=== PATIENT | male | born 1975 ===

== ENCOUNTER 2016-07-12 13:54 | Emergency (ER) | payer SELFPAY, MEDICAID ==
[2016-07-12 14:03] VITALS: BMI 27.1
[2016-07-12 15:06] VITALS: BP 147/98; PULSE 96; RESP 18; TEMP 98.1; O2SAT 97
--- NOTE | 2016-07-12 15:23 | C.PDOC ---
History Of Present Illness The patient, a 40 y/o male, presents to the ED requesting alcohol detox. Patient notes his last drink was prior to arrival. Otherwise, he denies suicidal /homicidal ideation and has no physical complaints at this time. Time Seen by Provider: 07/12/16 14:59 Chief Complaint (Nursing): Substance Abuse History Per: Patient History/Exam Limitations: intoxication Onset/Duration Of Symptoms: Hrs Current Symptoms Are (Timing): Still Present Suicide/Self Injury Attempted (Context): None Modifying Factor(s): Alcohol Associated Symptoms: denies: Suicidal Thoughts, Suicidal Plan Involuntary Hold By: None Recent travel outside of the [place]: No Additional History Per: Patient Past Medical History Reviewed: Historical Data, Nursing Documentation, Vital Signs Vital Signs: Last Vital Signs Temp 98.1 F 07/12/16 15:03 Pulse 96 H 07/12/16 15:03 Resp 18 07/12/16 15:03 BP 147/98 H 07/12/16 15:03 Pulse Ox 97 07/12/16 16:46 - Medical History PMH: Depression Denies: Diabetes, Hepatitis, HIV, HTN, Seizures, Sexually Transmitted Disease Surgical History: No Surg Hx - [facility] DETOXIFICATION SERVICES FOR SUBSTANCE ABUSE TREATMENT (02/06/16) Family History: States: Unknown Family Hx - Social History Hx Alcohol Use: Yes Hx Substance Use: No - Immunization History Hx Tetanus Toxoid Vaccination: No Hx Influenza Vaccination: No Hx Pneumococcal Vaccination: No Review Of Systems Except As Marked, All Systems Reviewed And Found Negative. Psych: Positive for: Other (+requesting alcohol detox ). Negative for: Suicidal ideation Physical Exam - Physical Exam Appears: No Acute Distress Skin: Normal Color, Warm, Dry Head: Atraumatic, Normacephalic Eye(s): bilateral: Normal Inspection Oral Mucosa: Moist, Other (+alcohol on breath ) Neck: Supple Chest: Symmetrical, No Deformity, No Tenderness Cardiovascular: Rhythm Regular, No Murmur Respiratory: Normal Breath Sounds, No Rales, No Rhonchi, No Wheezing Back: Normal Inspection, No Vertebral Tenderness, No Paraspinal Tenderness Extremity: Normal ROM, Capillary Refill (less than 2 seconds ) Neurological/Psych: Oriented x3, Normal Speech, Normal Cognition Gait: Steady ED Course And Treatment O2 Sat by Pulse Oximetry: 97 (on RA) Pulse Ox Interpretation: Normal Progress Note: Patient informed that there are no detox beds available at this time. Patient is stable for discharge and is given propr follow-up information. Disposition Counseled Patient/Family Regarding: Diagnosis - Disposition Referrals: Alcoholics Anonymous [Outside] [facility] [Outside] [facility] [Outside] Disposition: HOME/ ROUTINE Disposition Time: 15:30 Condition: STABLE Additional Instructions: Follow up with outpatient services Return to ED if any increase symptoms Instructions: Abuse of Alcohol (ED) - POA Present On Arrival: None - Clinical Impression Clinical Impression: Alcohol use disorder, severe, dependence - PA / BRAND ATTENDANT / Resident Statement MD/DO has reviewed & agrees with the documentation as recorded. - Scribe Statement The provider has reviewed the documentation as recorded by the Scribe (Melanie Coleman) All medical record entries made by the Scribe were at my direction and personally dictated by me. I have reviewed the chart and agree that the record accurately reflects my personal performance of the history, physical exam, medical decision making, and the department course for this patient. I have also personally directed, reviewed, and agree with the discharge instructions and disposition.
== END 2016-07-12 15:41 | disposition home or self-care (01) ==
LOC: C.ER 13:54
DX: F10.20 Alcohol dependence, uncomplicated (principal); Y90.9 Presence of alcohol in blood, level not specified

== ENCOUNTER 2016-09-29 19:06 | Inpatient (IN) | payer MEDICAID, SELFPAY ==
[2016-09-29 19:06] VITALS: BMI 27.1
[2016-09-29 20:40] LABS: RBC URINE < 1 /hpf (0-3); URINE BILIRUBIN NEGATIVE (NEGATIVE); URINE BLOOD 1+ (NEGATIVE); URINE COLOR Straw (YELLOW); URINE GLUCOSE (UA) NORMAL (Normal); URINE KETONE NEGATIVE (NEGATIVE); URINE LEUKOCYTE ESTERASE NEG Leu/uL (Negative); URINE PROTEIN NEGATIVE (NEGATIVE); URINE UROBILINOGEN NORMAL mg/dL (0.2-1.0); WBC URINE < 1 /hpf (0-5)
[2016-09-29 20:47] LABS: CHLORIDE 95 mmol/L (98-107)
[2016-09-29 20:48] LABS: POTASSIUM 3.6 mmol/L (3.6-5.2); SODIUM 135 mmol/L (132-148)
[2016-09-29 20:50] LABS: ALB/GLOB RATIO 1.1 (1.0-2.1); ALKALINE PHOSPHATASE 114 U/L (38-126); AST/SGOT 113 U/L (17-59); BILIRUBIN,TOTAL 1.2 mg/dL (0.2-1.3); BLOOD UREA NITROGEN 5 mg/dL (9-20); CARBON DIOXIDE 19 mmol/L (22-30); GFR AFRICAN-AMERICAN > 60; TOTAL PROTEIN 8.4 g/dL (6.3-8.3)
[2016-09-29 20:51] LABS: ALCOHOL SERUM 148 mg/dl (0-10); ALT/SGPT 85 U/L (21-72); CALCIUM 9.4 mg/dl (8.6-10.4); GLUCOSE,RANDOM 100 mg/dL (75-110)
--- NOTE | 2016-09-29 21:07 | C.PDOC ---
History Of Present Illness 41 year old male who presents to the ER intoxicated and seeking detox from ETOH ; last drink was [employer]. Denies physical complaints at this time. Time Seen by Provider: 09/29/16 20:45 Chief Complaint (Nursing): Substance Abuse History Per: Patient History/Exam Limitations: no limitations Onset/Duration Of Symptoms: Hrs Current Symptoms Are (Timing): Still Present Suicide/Self Injury Attempted (Context): None Modifying Factor(s): Alcohol Associated Symptoms: denies: Depression, Suicidal Thoughts, Suicidal Plan Involuntary Hold By: None Recent travel outside of the [place]: No Past Medical History Reviewed: Historical Data, Nursing Documentation, Vital Signs Vital Signs: Last Vital Signs Temp 98.2 F 09/29/16 19:36 Pulse 100 H 09/29/16 19:36 Resp 16 09/29/16 19:36 BP 147/95 H 09/29/16 19:36 Pulse Ox 97 09/29/16 21:11 - Medical History PMH: Depression Surgical History: No Surg Hx - [facility] Procedures DETOXIFICATION SERVICES FOR SUBSTANCE ABUSE TREATMENT (02/06/16) Family History: States: Unknown Family Hx - Social History Hx Alcohol Use: Yes Hx Substance Use: No - Immunization History Hx Tetanus Toxoid Vaccination: No Hx Influenza Vaccination: No Hx Pneumococcal Vaccination: No Review Of Systems Constitutional: Negative for: Fever, Chills Gastrointestinal: Negative for: Nausea, Vomiting, Diarrhea Physical Exam - Physical Exam Appears: Non-toxic, No Acute Distress, Other (ETOH on breath) Skin: Normal Color, Warm, Dry Head: Atraumatic, Normacephalic Oral Mucosa: Moist Chest: Symmetrical, No Tenderness Cardiovascular: Rhythm Regular, No Murmur Respiratory: Normal Breath Sounds, No Rales, No Rhonchi, No Wheezing Gastrointestinal/Abdominal: Soft, No Tenderness Neurological/Psych: Oriented x3, Normal Speech, Normal Cognition ED Course And Treatment - Laboratory Results Result Diagrams: 09/29/16 20:31 09/29/16 20:31 Lab Interpretation: Abnormal (etoh 148H) O2 Sat by Pulse Oximetry: 97 (Room air) Pulse Ox Interpretation: Normal Progress Note: Blood work ordered. Discussed case with nursing home social worker; no detox bed available, patient given information on other local detox sites and instuctions on how to become prescreened. Reevaluation Time: 22:29 Reassessment Condition: Improved - Physician Consult Information Outcome Of Conversation: 2230: d/w Detox- ok to Detox Medical Decision Making Medical Decision Making: alcohol abuse Disposition Doctor Will See Patient In The: Hospital Counseled Patient/Family Regarding: Studies Performed, Diagnosis - Disposition Disposition: HOSPITALIZED Disposition Time: 22:30 Condition: GOOD Forms: [facility] (Upper Sorbian) - Clinical Impression Clinical Impression: Alcohol use disorder, severe, dependence - Scribe Statement The provider has reviewed the documentation as recorded by the Alliibnessa Galdamez All medical record entries made by the Rashi were at my direction and personally dictated by me. I have reviewed the chart and agree that the record accurately reflects my personal performance of the history, physical exam, medical decision making, and the department course for this patient. I have also personally directed, reviewed, and agree with the discharge instructions and disposition.
[2016-09-29 21:19] LABS: BASO # 0.1 K/uL (0.0-0.2); BASO % 1.2 % (0.0-2.0); EOS % 0.3 % (0.0-4.0); HEMATOCRIT 48.2 % (35.0-51.0); LYMPH # 1.5 K/uL (1.0-4.3); MEAN CELL VOLUME 99.8 fL (80.0-94.0); MEAN CORPUSCULAR HEMOGLOBIN 35.1 pg (27.0-31.0); MEAN CORPUSCULAR HGB CONC 35.1 g/dL (33.0-37.0); MEAN PLATELET VOLUME 7.5 fL (7.2-11.7); MONO # 0.4 K/uL (0.0-0.8); MONO % 9.5 % (0.0-10.0); NRBC % 0.2 % (0.0-2.0); RED CELL DISTRIBUTION WIDTH 12.7 % (11.5-14.5); WHITE BLOOD COUNT 4.4 K/uL (4.8-10.8)
--- NOTE | 2016-09-30 08:49 | PCM.BM ---
<RaulitoEmelyn foster George - Last Filed: 09/30/16 08:48> Treatment Plan Problems - Problems identified on initial assessmt Alcohol Dependence Date Initiated: 09/30/16 Time Initiated: 08:49 Assessment reference: NA Status: Active Treatment assets and liabiliti Patient Assests: ADL independent Patient Liabilities: substance abuse - Milieu Protocol Maintain good personal hygiene: daily Encourage regular showers, daily Remind patient to perform daily oral care, daily Assist patient to perform ADL's Maintain personal safety: every shift Educate patient to report safety concerns to staff, every shift Monitor environment for contraband/sharps Medication safety: Monitor for expected outcome, potential side effects: every shift, Assess barriers to learning: every shift, Assess readiness for medication education: every shift <Sonam Kelley - Last Filed: 10/02/16 10:41> Family Contact Family involvement: Famliy/SO not involved Family contact: Patient agrees to contact - Goals for Treatment Patient goals for treatment: To transition to o/p tx. for people who are uninsured. Discharge/Continuing Care - Education Needs Education Needs: Patient Medication, Patient Diagnosis/Disease Process, Patient Coping Skills, Patient Anger Management skills, Patient Placement options, Patient Community resources - Discharge Discharge Criteria: Tolerates medication w/o severe side effects, Normal sleep pattern, No longer exhibiting s/s of withdrawal, Reduction of target symptoms Discharge to:: Home - Treatment Team Participation Patient/Family/SO Statement: 10/02/16 10:43 " I gotta get a job. That will keep me busy". Also I gotta attend AA meetings". Was Patient/Family/SO present at Treatment Team Meeting: Yes <Carmen Israel - Last Filed: 10/02/16 12:55> - Diagnosis (1) Alcohol use disorder, severe, dependence Status: Acute Interventions: 10/02/16 12:55 * Assess 7x/week regarding severity of withdrawal * Educate regarding risks, benefits, side effects and alternatives of medications * Use Motivational Interviewing for abstinence * Use CBT for relapse prevention * Medication management for withdrawal symptoms * Encourage medication assisted treatment *
[2016-09-30] MEDS: Multiple Vitamins Tab PO SCH (12:02)
--- NOTE | 2016-09-30 23:56 | PCM.PSYCH ---
Initial Psychiatric Evaluation - Initial Psychiatric Evaluation Type of Admission: Voluntary Legal Status: Capacity Chief Complaint (in patient's own words): I'm feeling anxious History of Present Illness and Precipitating Events: He is 41 year old male who is admitted for alcohol detox. He is single, unemployed. His left him couple of weeks ago due to his alcohol drinking habit. He stated that he was drinking 6-8 cans of beers daily for 2 years, withdrawal symptoms were positive if he tried to quit drinking. CAGE questionaire was positive. He reported that he lost his job and his family due to drinking habit. He is hopeful that he can stay sober after detox. He reported that he is depressed, but no SI,HI, intent or plan. He denied SZ, DT or lever issues. no AVH. Current Medications: Active Medications Generic Name Dose Route Start Last Admin Trade Name Freq PRN Reason Stop Dose Admin Clonidine HCl 0.1 mg 09/30/16 10:43 09/30/16 12:03 Catapres PO 0.1 mg Q8H PRN Administration INCREASE SBP, ETOH WITHDRAWAL Folic Acid 1 mg 09/30/16 10:45 09/30/16 12:03 Folic Acid PO 1 mg DAILY SUKHI Administration Ibuprofen 600 mg 09/30/16 10:46 09/30/16 20:32 Motrin Tab PO 600 mg TID PRN Administration Pain, moderate (4-7) Lorazepam 2 mg 09/30/16 00:30 09/30/16 20:32 Ativan PO 10/04/16 00:29 2 mg Q4H SUKHI Administration Taper Lorazepam 1 mg 09/30/16 00:24 Ativan PO Q6 PRN for withdrawals see instructio Multivitamins 1 tab 09/30/16 10:45 09/30/16 12:02 Hexavitamin PO 1 tab DAILY SUKHI Administration Thiamine HCl 100 mg 09/30/16 10:45 09/30/16 12:03 Vitamin B1 Tab PO 100 mg DAILY SUKHI Administration Past Psychiatric History - Past Psychiatric History Prior Professional Help: multiple detox Prior Psychiatric Treatment: none reported At what hospital: detox in [facility] in 2016, In [place] in 2016 Duration: 5 days Nature of Treatment: detox History of Abuse: no sexual or physical abuse History of ETOH/Drug Use: please see HPI History of Family Illness: denied Pertinent Medical Hx (Current Medical&Sleep Prob, Allergies): Allergies Allergy/AdvReac Type Severity Reaction Status Date / Time No Known Allergies Allergy Verified 09/29/16 19:38 No Known Home Med 07/12/16 Review of Systems - Review of Systems All systems: reviewed and no additional remarkable complaints except (please see HPI) Mental Status Examination - Personal Presentation Personal Presentation: Looks stated age - Affect Affect: Constricted - Motor Activity Motor Activity: Psychomotor Agitation - Reliability in Providing Information Reliability in Providing Information: Fair - Speech Speech: Coherent - Mood Mood: Depressed, Anxious - Formal Thought Process Formal Thought Process: No Impairment - Hallucinations/Delusions Additional comments: No AVH - Obsessions/Compulsions Obsessions: No Compulsions: No - Cognitive Functions Orientation: Person, Place, Situation, Time Sensorium: Alert Attention/Concentration: Attentive Abstract Thinking: Nemo Estimate of Intelligence: Average Judgement: Intact, as evidence by: Good judgement, Intact, as evidence by: Insight regarding need for hospitalization Memory: Recent intact, as evidence by: Ability to recall events of the day - Risk Additional comments: None reported - Strength & Assets Inventory Strength & Assets Inventory: Intelligence, Cooperative DSM 5 DX - DSM 5 DSM 5 Diagnosis: Alcohol use disorder severe, Depressive disorder unspecified type - Recommended/Plan of Treatment Treatment Recommendations and Plan of Treatment: Ativan detox for alcohol As needed meds [place] and CBT Attend groups and activities Support and psychoeducation Consider MAT Refer to IOP or rehab 34 min Projected ELOS: 5 days Prognosis: good with treatment Discharge Plan and Discharge Criteria: as per SW - Smoking Cessation Smoking Cessation Initiated: Yes
[2016-10-01] MEDS: Multiple Vitamins Tab PO SCH (10:14)
--- NOTE | 2016-10-01 20:05 | PCM.PYCHPN ---
Psychiatric Progress Note - Psychiatric Progress Note Patient seen today, length of contact: 17 minutes Patient Chief Complaint: I'm feeling better Problems Identified/Issues Discussed: The pt is seen, chart reviewed, case discussed with staff. The pt is compliant with medications and reports no side-effects. Symptoms are improving but needs more time to stabilize.~ After care discussed, support and psychoeducation given. Medical Problems: None reported Diagnostic Results: No new result DSM 5 Symptoms Update: Alcohol use disorder, severe, Depressive disorder unspecified type Medication Change: Yes (Ativan taper daily) Medical Record Reviewed: Yes Mental Status Examination - Cognitive Function Orientation: Person, Place, Situation, Time Attention: WNL Concentration: WNL Association: WNL Fund of Knowledge: WNL - Mood Mood: Depressed, Anxious - Affect Affect: Constricted - Speech Speech: Appropriate - Formal Thought Process Formal Thought Process: No Impairment - Suicidal Ideation Suicidal Ideation: No - Homicidal Ideation Homicidal Ideation: No Goal/Treatment Plan - Goal/Treatment Plan Need for Continued Stay: Discharge may exacerbated symptoms Progress Toward Problem(s) and Goals/Treatment Plan: Ativan detox for alcohol As needed meds [place] and CBT Attend groups and activities Support and psychoeducation Consider MAT Refer to IOP or rehab 17 min Estimated Date of D/C: 10/05/16 - Smoking Cessation Smoking Cessation Initiated: Yes
[2016-10-02] MEDS: Multiple Vitamins Tab PO SCH (09:15)
--- NOTE | 2016-10-02 14:27 | PCM.PYCHPN ---
Psychiatric Progress Note - Psychiatric Progress Note Patient seen today, length of contact: 17 minutes Patient Chief Complaint: "I want to become sober, join AA, and get a job" Problems Identified/Issues Discussed: The pt is seen, chart reviewed, case discussed with staff. Support given, CBT and [place] used briefly Patient is not sleeping ok, feels dizzy, and feels tired. Patients Liver is impaired, need to do Liver function testing again. After care discussed. Patient has no insurance, needs to get medicaid. Medication Change: Yes (Ativan taper daily) Medical Record Reviewed: Yes Mental Status Examination - Cognitive Function Orientation: Person, Place, Situation, Time Memory: Intact Attention: WNL Concentration: WNL Association: WNL Fund of Knowledge: WNL - Mood Mood: Neutral - Affect Affect: Broad - Speech Speech: Appropriate - Formal Thought Process Formal Thought Process: No Impairment - Suicidal Ideation Suicidal Ideation: No - Homicidal Ideation Homicidal Ideation: No Goal/Treatment Plan - Goal/Treatment Plan Need for Continued Stay: Discharge may exacerbated symptoms, Severe functional impairment Progress Toward Problem(s) and Goals/Treatment Plan: Continue medications Support and psychoeducation daily Attend groups and activities daily After care planning by BAY Naltrexone recommended Estimated Date of D/C: 10/05/16
[2016-10-02 15:51] VITALS: RESP 18
--- NOTE | 2016-10-03 08:50 | PCM.PYCHDC ---
Mental Status Examination - Mental Status Examination Orientation: Person, Place, Situation, Time Memory: Intact Mood: Neutral Affect: Broad Speech: Appropriate Attention: WNL Concentration: WNL Language: Word Retrieval Association: WNL Fund of Knowledge: WNL Formal Thought Process: No Impairment Suicidal Ideation: No Current Homicidal Ideation?: No Discharge Summary - Discharge Note Reason for Hospitalization: 41 year old male who presented to the ER intoxicated and seeking detox from ETOH ; last drink was prior to admission. Psychiatric History (includes Medical, Family, Personal Hx): detox Consultations:: List each consultation separately and include: 1. Reason for request. 2. Findings. 3. Follow-up Summary of Hospital Course include:: 1. Description of specific treatment plan utilized for patients during their course of treatmen. 2. Summarize the time- course for resolution of acute symptoms and/or regressed behaviors. 3. Describe issues identified and worked on during hospitalization. 4. Describe medication utilized. 5. Describe medical problems identified and treated. 6. Reassessment of suicide risk Summary of Hospital Course: Treatment: Ativan detox for alcohol As needed meds [place] and CBT Attend groups and activities Support and psychoeducation Consider MAT Refer to IOP or rehab Course of treatment: 3 nights - Final Diagnosis (DSM 5) Condition upon Discharge: GOOD DSM 5: Alcohol use disorder severe Depressive disorder unspecified type Disposition: HOME/ ROUTINE Follow-up Treatment Plan: Patient will follow up only with alcoholics anonymous until he attains medicare coverage at which time he will be eligible for further preventative treatment. He conveyed to us he was not interested in inpatient rehab at this time. Recommend follow up with our [facility] ([phone]) so he can get regular follow up regarding his elevated LFTs (likely 2/2 to etoh abuse ) and his hypertension. Use relapse prevention skills. Return to ER or call 911 if suicidal, homicidal or symptoms relapse. Stay away from stress, alcohol and drugs. Prescriptions/Medication Reconciliation: Gabapentin [Neurontin] 300 mg PO BID #60 cap traZODone [Desyrel] 100 mg PO HS #30 tab - Antipsychotic Medications Pt discharged on 2 or more routine antipsychotic medications: No
[2016-10-03 09:00] LABS: CHLORIDE 98 mmol/L (98-107)
[2016-10-03 09:01] LABS: POTASSIUM 3.7 mmol/L (3.6-5.2); SODIUM 138 mmol/L (132-148)
[2016-10-03 09:03] LABS: ALB/GLOB RATIO 1.1 (1.0-2.1); ALKALINE PHOSPHATASE 88 U/L (38-126); ALT/SGPT 105 U/L (21-72); AST/SGOT 126 U/L (17-59); BLOOD UREA NITROGEN 13 mg/dL (9-20); CARBON DIOXIDE 26 mmol/L (22-30); GFR AFRICAN-AMERICAN > 60; TOTAL PROTEIN 7.5 g/dL (6.3-8.3)
[2016-10-03 09:04] LABS: CALCIUM 8.8 mg/dl (8.6-10.4); GLUCOSE,RANDOM 105 mg/dL (75-110)
[2016-10-03] MEDS: Multiple Vitamins Tab PO SCH (09:52)
[2016-10-03 09:59] VITALS: TEMP 98.2; O2SAT 100
[2016-10-03 11:28] VITALS: BP 145/90; PULSE 90
== END 2016-10-03 12:30 | disposition home or self-care (01) | DRG 751 ==
LOC: C.ER 19:06 → C.7D 22:30
PROVIDERS: ADMIT Psychiatry & Neurology Psychiatry; ATTEND Psychiatry & Neurology Psychiatry
PROC: HZ2ZZZZ Detoxification Services for Substance Abuse Treatment (ICD-10-PCS; principal; 2016-09-29)
PROC: HZ46ZZZ Group Counseling for Substance Abuse Treatment, Psychoeducation (ICD-10-PCS; 2016-09-29)
PROC: HZ59ZZZ Individual Psychotherapy for Substance Abuse Treatment, Supportive (ICD-10-PCS; 2016-09-29)
DX: F10.230 Alcohol dependence with withdrawal, uncomplicated (principal); F32.9 Major depressive disorder, single episode, unspecified; F10.220 Alcohol dependence with intoxication, uncomplicated

== ENCOUNTER 2016-10-14 16:06 | Emergency (ER) | payer SELFPAY ==
[2016-10-14 16:07] VITALS: BMI 27.1
[2016-10-14 16:18] VITALS: TEMP 98.3
[2016-10-14] MEDS ORDERED: Sodium Chloride 0.9% 1,000 ML IV ONE (16:30)
[2016-10-14 16:41] LABS: RBC URINE 22 /hpf (0-3); URINE BILIRUBIN NEGATIVE (NEGATIVE); URINE BLOOD 1+ (NEGATIVE); URINE COLOR Amber (YELLOW); URINE GLUCOSE (UA) 1+ mg/dL (Normal); URINE KETONE TRACE mg/dL (NEGATIVE); URINE LEUKOCYTE ESTERASE NEG Leu/uL (Negative); URINE PROTEIN 1+ mg/dL (NEGATIVE); URINE UROBILINOGEN NORMAL mg/dL (0.2-1.0); WBC URINE < 1 /hpf (0-5)
[2016-10-14] MEDS ORDERED: Sodium Chloride 0.9% 1,000 ML ONE (16:41)
[2016-10-14 16:42] LABS: BASO # 0.1 K/uL (0.0-0.2); BASO % 0.6 % (0.0-2.0); EOS # 0.1 K/uL (0.0-0.7); EOS % 0.7 % (0.0-4.0); HEMATOCRIT 44.1 % (35.0-51.0); LYMPH % 21.8 % (20.0-40.0); MEAN CELL VOLUME 101.6 fL (80.0-94.0); MEAN CORPUSCULAR HEMOGLOBIN 35.7 pg (27.0-31.0); MEAN CORPUSCULAR HGB CONC 35.1 g/dL (33.0-37.0); MEAN PLATELET VOLUME 7.7 fL (7.2-11.7); MONO # 0.9 K/uL (0.0-0.8); RED CELL DISTRIBUTION WIDTH 12.2 % (11.5-14.5); WHITE BLOOD COUNT 9.3 K/uL (4.8-10.8)
[2016-10-14 16:50] LABS: CHLORIDE 99 mmol/L (98-107)
--- NOTE | 2016-10-14 16:50 | C.PDOC ---
History Of Present Illness Rodrick Castorena, a 41 year old male, presents to the ED complaining of lower abdominal pain x1 day. The patient states that the pain radiates to his back. Denies fever, chills. Patient states he does note some burning with urination. No PMD Time Seen by Provider: 10/14/16 16:23 Chief Complaint (Nursing): Abdominal Pain History Per: Patient History/Exam Limitations: no limitations Onset/Duration Of Symptoms: Days (x1 day) Current Symptoms Are (Timing): Still Present Radiation Of Pain To:: Back Associated Symptoms: Urinary Symptoms (dysuria) Past Medical History Reviewed: Historical Data, Nursing Documentation, Vital Signs Vital Signs: Last Vital Signs Temp 98.3 F 10/14/16 16:13 Pulse 87 10/14/16 16:13 Resp 20 10/14/16 16:13 BP 124/84 10/14/16 16:13 Pulse Ox 97 10/14/16 17:54 - Medical History PMH: Depression Denies: Diabetes, Hepatitis, HIV, HTN, Seizures, Sexually Transmitted Disease Surgical History: No Surg Hx - [facility] Procedures DETOXIFICATION SERVICES FOR SUBSTANCE ABUSE TREATMENT (09/29/16) GROUP AUTOMATIC HEMMER FOR SUBSTANCE ABUSE TREATMENT, PSYCHOEDUCATION (09/29/16) INDIV PSYCHOTHERAPY FOR SUBSTANCE ABUSE TREATMENT, SUPPORT (09/29/16) Family History: States: Unknown Family Hx - Social History Hx Alcohol Use: Yes Hx Substance Use: No - Immunization History Hx Tetanus Toxoid Vaccination: No Hx Influenza Vaccination: No Hx Pneumococcal Vaccination: No Review Of Systems Constitutional: Negative for: Fever, Chills Gastrointestinal: Positive for: Abdominal Pain (lower abdominal pain radiating to back) Genitourinary: Positive for: Dysuria Physical Exam - Physical Exam Appears: Well, Non-toxic, No Acute Distress Skin: Normal Color, Warm, Dry Head: Atraumatic, Normacephalic Eye(s): bilateral: Normal Inspection, PERRL, EOMI Nose: Normal Oral Mucosa: Moist Tongue: Normal Appearing Lips: Normal Appearing Teeth: Normal Dentition Gingiva: Normal Appearing Throat: Normal Neck: Normal, Normal ROM, Supple Chest: Symmetrical, No Deformity, No Tenderness Cardiovascular: Rhythm Regular, No Murmur Respiratory: Normal Breath Sounds, No Rales, No Rhonchi, No Wheezing Gastrointestinal/Abdominal: Bowel Sounds, Soft, Tenderness (suprapubic tenderness) Back: Normal Inspection, No CVA Tenderness Extremity: Normal ROM, No Tenderness, No Deformity, No Swelling Neurological/Psych: Oriented x3, Normal Speech, Normal Cognition ED Course And Treatment - Laboratory Results Result Diagrams: 10/14/16 16:40 10/14/16 16:40 Lab Interpretation: Normal O2 Sat by Pulse Oximetry: 97 (RA) Pulse Ox Interpretation: Normal - CT Scan/US No standard instances Other Rad Studies (CT/US): Read By Radiologist, Radiology Report Reviewed CT/US Interpretation: FINDINGS: LOWER THORAX: Unremarkable. LIVER: Unremarkable. No gross lesion or ductal dilatation. GALLBLADDER AND BILE DUCTS : The gallbladder is contracted. No evidence of cholecystitis. PANCREAS: Unremarkable. No gross lesion or ductal dilatation. SPLEEN: Unremarkable. ADRENALS: Unremarkable. No mass. KIDNEYS AND URETERS: Unremarkable. No hydronephrosis. No solid mass. VASCULATURE: Unremarkable. No aortic aneurysm. BOWEL: There are scattered colonic diverticulosis. There are inflammatory changes surrounding the proximal sigmoid colon in the left lower abdomen consistent with diverticulitis. No evidence of bowel obstruction. APPENDIX: Unremarkable. Normal appendix. PERITONEUM: Unremarkable. No free fluid. No free air. LYMPH NODES: Unremarkable. No enlarged lymph nodes. BLADDER: Urinary bladder is not distended. REPRODUCTIVE: Enlarged prostate and seminal vesicles noted. BONES: No acute fracture. OTHER FINDINGS: None. IMPRESSION : Proximal sigmoid colon diverticulitis. No evidence of abscess formation in this noncontrast study. No evidence of free air. Otherwise no evidence of acute pathology in the abdomen and pelvis. Enlarged prostate and seminal vesicles. Progress Note: Treated with IVF NSS, toradol IV. On re-evaluation abdomen soft mild lower abdominal tenderness Reassessment Condition: Unchanged Medical Decision Making Medical Decision Makin Initial Impression: 41 year old male presenting with lower abdominal pain Initial Plan: * CT ABD&PELV w/o PO or IV Contrast * CMP * CBC * Chlamydia/GC RNA * TMA * NS 1000mls IV 1000mls/hr * Toradol * Urine Culture * Urinalysis * Reevaluation Disposition Counseled Patient/Family Regarding: Studies Performed, Diagnosis, Need For Followup, Rx Given - Disposition Referrals: [facility] [Outside] [place] [employer] [facility] [Outside] Disposition: HOME/ ROUTINE Disposition Time: 18:00 Condition: STABLE Additional Instructions: Follow up at clinic for further evaluation Return to ED if any increase abdominal pain, fever or chills Prescriptions: Amoxicillin/Clavulanate [Augmentin 875 MG-125 MG] 1 tab PO BID #14 tab Naproxen [Naprosyn] 1 tab PO BID PRN #25 tab PRN Reason: Pain Instructions: Diverticulitis Diet (DC), Diverticulitis (ED) Forms: [facility] (Croatian) - POA Present On Arrival: None - Clinical Impression Clinical Impression: Abdominal pain, Diverticulitis - Scribe Statement The provider has reviewed the documentation as recorded by the Rashi Huerta All medical record entries made by the Rashi were at my direction and personally dictated by me. I have reviewed the chart and agree that the record accurately reflects my personal performance of the history, physical exam, medical decision making, and the department course for this patient. I have also personally directed, reviewed, and agree with the discharge instructions and disposition.
[2016-10-14 16:51] LABS: POTASSIUM 3.7 mmol/L (3.6-5.2); SODIUM 140 mmol/L (132-148)
[2016-10-14 16:53] LABS: ALKALINE PHOSPHATASE 79 U/L (38-126); AST/SGOT 29 U/L (17-59); BILIRUBIN,TOTAL 1.1 mg/dL (0.2-1.3); CARBON DIOXIDE 26 mmol/L (22-30); GFR AFRICAN-AMERICAN > 60; TOTAL PROTEIN 8.2 g/dL (6.3-8.3)
[2016-10-14 16:54] LABS: ALB/GLOB RATIO 1.1 (1.0-2.1); ALT/SGPT 42 U/L (21-72); BLOOD UREA NITROGEN 13 mg/dL (9-20); CALCIUM 9.4 mg/dl (8.6-10.4); GLUCOSE,RANDOM 89 mg/dL (75-110)
--- NOTE | 2016-10-14 17:42 | CT ---
PROCEDURE: CT Abdomen and Pelvis without intravenous contrast HISTORY: Pain COMPARISON: None. TECHNIQUE: Axial and reformatted coronal and sagittal CT images of the abdomen and pelvis were obtained without IV or oral contrast administration. Contrast Dose: 0 Radiation dose: Total exam DLP = 733.09 mGy-cm. This CT exam was performed using one or more of the following dose reduction techniques: Automated exposure control, adjustment of the mA and/or kV according to patient size, and/or use of iterative reconstruction technique. FINDINGS: LOWER THORAX: Unremarkable. LIVER: Unremarkable. No gross lesion or ductal dilatation. GALLBLADDER AND BILE DUCTS: The gallbladder is contracted. No evidence of cholecystitis. PANCREAS: Unremarkable. No gross lesion or ductal dilatation. SPLEEN: Unremarkable. ADRENALS: Unremarkable. No mass. KIDNEYS AND URETERS: Unremarkable. No hydronephrosis. No solid mass. VASCULATURE: Unremarkable. No aortic aneurysm. BOWEL: There are scattered colonic diverticulosis. There are inflammatory changes surrounding the proximal sigmoid colon in the left lower abdomen consistent with diverticulitis. No evidence of bowel obstruction. APPENDIX: Unremarkable. Normal appendix. PERITONEUM: Unremarkable. No free fluid. No free air. LYMPH NODES: Unremarkable. No enlarged lymph nodes. BLADDER: Urinary bladder is not distended. REPRODUCTIVE: Enlarged prostate and seminal vesicles noted. BONES: No acute fracture. OTHER FINDINGS: None. IMPRESSION: Proximal sigmoid colon diverticulitis. No evidence of abscess formation in this noncontrast study. No evidence of free air. Otherwise no evidence of acute pathology in the abdomen and pelvis. Enlarged prostate and seminal vesicles.
[2016-10-14] MEDS ORDERED: Amoxicillin-Clav 875-125 mg Tab PO STA (17:49)
[2016-10-14 18:03] VITALS: BP 121/80; PULSE 74; RESP 18; O2SAT 98
[2016-10-14] MEDS ORDERED: Amoxicillin-Clav 875-125 mg Tab PO ONE (18:03)
== END 2016-10-14 18:07 | disposition home or self-care (01) ==
LOC: C.ER 16:06
DX: K57.32 Diverticulitis of large intestine without perforation or abscess without bleeding (principal); R10.30 Lower abdominal pain, unspecified
CPT/HCPCS: 74176; 80053; 81001; 85025; 87086; 87491; 87591; 96361; 96374; 99284; J1885; J7040

== ENCOUNTER 2016-12-18 16:12 | Inpatient (IN) | payer MEDICAID, SELFPAY ==
[2016-12-18 16:13] VITALS: BMI 27.1
[2016-12-18] MEDS ORDERED: Sodium Chloride 0.9% 1,000 ML IV ONE (17:03)
[2016-12-18 17:15] LABS: BASO # 0.1 K/uL (0.0-0.2); BASO % 0.7 % (0.0-2.0); HEMATOCRIT 48.3 % (35.0-51.0); LYMPH # 0.8 K/uL (1.0-4.3); LYMPH % 10.9 % (20.0-40.0); MEAN CELL VOLUME 97.4 fL (80.0-94.0); MEAN CORPUSCULAR HEMOGLOBIN 33.8 pg (27.0-31.0); MEAN CORPUSCULAR HGB CONC 34.7 g/dL (33.0-37.0); MONO # 0.5 K/uL (0.0-0.8); RED CELL DISTRIBUTION WIDTH 13.3 % (11.5-14.5); WHITE BLOOD COUNT 7.7 K/uL (4.8-10.8)
--- NOTE | 2016-12-18 17:15 | C.PDOC ---
History Of Present Illness 41 yo male w/PMHx of alcohol abuse come in request detox. Pt sts, drinking every day, last drink " few beers had few hours [employer]". Pt c/o body shaking, " feeling anxious", headache, mild epigastric pain and nausea, (+) loss of appetite for past few days. Otherwise, pt denies suicidal or homocidal ideation , denies recent illness, headache, dizziness, recent known trauma or injury, drooling, dysphagia, dyspnea, neck pain, CP, SOB, palpitation, hematemesis, melena, UTI sx. At the time of evaluation, appears slightly anxious, tremolos. Time Seen by Provider: 12/18/16 16:39 Chief Complaint (Nursing): Substance Abuse History Per: Patient Past Medical History Reviewed: Historical Data, Nursing Documentation, Vital Signs Vital Signs: Last Vital Signs Temp 98.6 F 12/18/16 18:43 Pulse 100 H 12/18/16 18:43 Resp 19 12/18/16 18:43 BP 158/95 H 12/18/16 18:43 Pulse Ox 100 12/18/16 18:47 - Medical History PMH: Depression, HTN Denies: Diabetes, Hepatitis, HIV, Seizures, Sexually Transmitted Disease - [facility] DETOXIFICATION SERVICES FOR SUBSTANCE ABUSE TREATMENT (09/29/16) GROUP GUARD MANAGER FOR SUBSTANCE ABUSE TREATMENT, PSYCHOEDUCATION (09/29/16) INDIV PSYCHOTHERAPY FOR SUBSTANCE ABUSE TREATMENT, SUPPORT (09/29/16) Family History: States: Unknown Family Hx - Social History Hx Tobacco Use: Yes Hx Alcohol Use: Yes Hx Substance Use: No - Immunization History Hx Tetanus Toxoid Vaccination: No Hx Influenza Vaccination: No Hx Pneumococcal Vaccination: No Review Of Systems Except As Marked, All Systems Reviewed And Found Negative. Constitutional: Negative for: Fever, Chills Eyes: Negative for: Vision Change ENT: Negative for: Ear Discharge, Nose Discharge, Nose Congestion, Throat Pain Cardiovascular: Negative for: Chest Pain, Palpitations, Orthopnea, Light Headedness Respiratory: Negative for: Cough, Shortness of Breath, Wheezing Gastrointestinal: Positive for: Nausea, Abdominal Pain. Negative for: Vomiting , Diarrhea, Constipation, Melena, Hematochezia, Hematemesis Genitourinary: Negative for: Dysuria, Frequency, Incontinence Neurological: Negative for: Weakness, Numbness, Seizures, Altered Mental Status , Headache, Dizziness Physical Exam - Physical Exam Appears: Well, Other (tremolous, anxious) Skin: Normal Color, Warm, Dry, No Rash Head: Atraumatic, Normacephalic Eye(s): bilateral: PERRL Nose: No Flaring, No Discharge, No Deformity, No Tenderness Oral Mucosa: Moist Tongue: Normal Appearing Lips: Normal Appearing Throat: No Erythema, No Exudate, No Drooling Neck: Trachea Midline, Supple Cardiovascular: Rhythm Regular Respiratory: No Decreased Breath Sounds, No Accessory Muscle Use, No Stridor, No Wheezing Gastrointestinal/Abdominal: Soft, Tenderness (mild epigastric), No Distention, No Guarding, No Rebound Back: No CVA Tenderness Extremity: Normal ROM, No Tenderness, No Deformity, No Swelling Neurological/Psych: Oriented x3, Normal Speech, Normal Motor, Normal Sensation, Normal Reflexes ED Course And Treatment - Laboratory Results Result Diagrams: 12/18/16 17:12 12/18/16 17:12 Lab Interpretation: Abnormal ECG: Interpreted By Me, Viewed By Me ECG Rhythm: Sinus Tachycardia Interpretation Of ECG: Sinus tachy@107/min, no acute T wave or ST-T changes O2 Sat by Pulse Oximetry: 100 Pulse Ox Interpretation: Normal Progress Note: Pt was OBS in ED for 2.5 hrs and reports no changes. Pt c/o headache, still noted mild B/L hands tremor, c/o abdominal pain. Blood work review and case discussed with ED attending. Admission recommend. Case discussed with hospitalist and admission arranged to ( next shift) . Disposition - Disposition Disposition: HOSPITALIZED Disposition Time: 18:43 Condition: STABLE Forms: [facility] (Frisian) - Clinical Impression Clinical Impression: Alcohol use disorder, severe, dependence, Alcohol withdrawal delirium, acute, hyperactive
[2016-12-18] MEDS ORDERED: Sodium Chloride 0.9% 1,000 ML ONE (17:17)
[2016-12-18 17:25] LABS: CHLORIDE 91 mmol/L (98-107)
[2016-12-18 17:26] LABS: POTASSIUM 3.5 mmol/L (3.6-5.2); SODIUM 130 mmol/L (132-148)
[2016-12-18 17:28] LABS: ALB/GLOB RATIO 1.2 (1.0-2.1); AST/SGOT 123 U/L (17-59); BILIRUBIN,TOTAL 1.7 mg/dL (0.2-1.3); CARBON DIOXIDE 17 mmol/L (22-30); GFR AFRICAN-AMERICAN > 60
[2016-12-18 17:29] LABS: ALCOHOL SERUM 70 mg/dl (0-10); ALKALINE PHOSPHATASE 108 U/L (38-126); ALT/SGPT 88 U/L (21-72); BLOOD UREA NITROGEN 8 mg/dL (9-20); CALCIUM 8.8 mg/dl (8.6-10.4); GLUCOSE,RANDOM 114 mg/dL (75-110)
[2016-12-18] MEDS ORDERED: Multivitamin (MVI) 10 ML, Thiamine 100 MG, Folic Acid 1 MG in Sodium Chloride 0.9% 1,00... IV ONE (18:42)
--- NOTE | 2016-12-18 20:44 | CP.PCM.HP ---
<Ann MonahanMontana - Last Filed: 12/19/16 01:06> History of Present Illness - History of Present Illness History of Present Illness: Patient is a 41 year old male with a past medical history of alcohol abuse, hypertension, depression, who presents to the ED for alcohol detox. Patient reports he is very depressed because his left him and took his kids, and since then has been drinking and cannot stop. Patient reports his drinking has increased over the last 3 weeks due to his depression. He states he drinks 6-12 beers, sized 12-24ounces daily. His last drink was the morning of admission, two 12-ounce beers. Patient reports he has tremors that started last night and that he has to drink a beer to ease them. He also states he has an episode of dry heaving this morning. He reports he has been to the hospital 2 other times for detox over the last 3 years. Patient currently denies having chest pain, palpitations, shortness of breath, fevers. 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 Allergies: NKDA Medications: none Present on Admission - Present on Admission Any Indicators Present on Admission: No Review of Systems - Constitutional Constitutional: Headache, Weakness. absent: Fever - EENT Eyes: absent: Change in Vision, Loss of Vision Ears: Dizziness - Cardiovascular Cardiovascular: absent: Chest Pain, Dyspnea, Leg Edema, Palpitations - Respiratory Respiratory: absent: Cough, Dyspnea - Gastrointestinal Gastrointestinal: Abdominal Pain (Epigastric), Nausea, Vomiting (1 episode of dry heaving this morning). absent: Constipation, Diarrhea - Genitourinary Genitourinary: absent: Dysuria, Hematuria, Urinary Frequency - Musculoskeletal Musculoskeletal: absent: Back Pain - Integumentary Integumentary: absent: Rash - Neurological Neurological: Dizziness, Headaches, Tremor, Weakness. absent: Loss of Vision - Psychiatric Psychiatric: Depression - Endocrine Endocrine: absent: Palpitations Past Patient History - Infectious Disease Hx of Infectious Diseases: None - Past Medical History & Family History Past Medical History?: No - Past Social History Smoking Status: Never Smoked - CARDIAC Hx Hypertension: Yes - PULMONARY Hx Tuberculosis: No - NEUROLOGICAL Hx Seizures: No - HEMATOLOGICAL/ONCOLOGICAL Hx Human Immunodeficiency Virus (HIV): No - MUSCULOSKELETAL/RHEUMATOLOGICAL Hx Falls: No - GENITOURINARY/GYNECOLOGICAL Hx Sexually Transmitted Disorders: No - PSYCHIATRIC Hx Depression: Yes Hx Substance Use: No - SURGICAL HISTORY Hx Surgeries: No Meds Allergies/Adverse Reactions: Allergies Allergy/AdvReac Type Severity Reaction Status Date / Time No Known Allergies Allergy Verified 10/14/16 16:18 Physical Exam - Head Exam Head Exam: ATRAUMATIC, NORMAL INSPECTION - Eye Exam Eye Exam: EOMI, Normal appearance Pupil Exam: PERRL - ENT Exam ENT Exam: Mucous Membranes Moist - Respiratory Exam Respiratory Exam: Clear to Auscultation Bilateral, NORMAL BREATHING PATTERN. absent: Rhonchi, Wheezes, Respiratory Distress - Cardiovascular Exam Cardiovascular Exam: Tachycardia, REGULAR RHYTHM, +S1, +S2 - GI/Abdominal Exam GI & Abdominal Exam: Normal Bowel Sounds, Soft, Tenderness (epigastric). absent : Distended, Firm - Extremities Exam Extremities exam: Positive for: normal inspection. Negative for: calf tenderness, pedal edema, tenderness - Neurological Exam Neurological exam: Alert, Oriented x3 - Psychiatric Exam Psychiatric exam: Depressed - Skin Skin Exam: Dry, Intact, Normal Color, Warm Results - Vital Signs Recent Vital Signs: Last Vital Signs Temp 98.8 F 12/18/16 20:01 Pulse 105 H 12/18/16 20:01 Resp 16 12/18/16 20:01 BP 152/93 H 12/18/16 20:01 Pulse Ox 98 12/18/16 20:01 - Labs Result Diagrams: 12/18/16 17:12 12/18/16 17:12 Labs: Laboratory Results - last 24 hr 12/18/16 12/18/16 12/18/16 16:46 17:12 17:12 WBC 7.7 RBC 4.96 Hgb 16.8 Hct 48.3 MCV 97.4 H D MCH 33.8 H MCHC 34.7 RDW 13.3 Plt Count 153 D MPV 7.0 L Neut % (Auto) 82.4 H Lymph % (Auto) 10.9 L Jerome % (Auto) 6.0 Eos % (Auto) 0.0 Baso % (Auto) 0.7 Neut # 6.3 Lymph # 0.8 L Jerome # 0.5 Eos # 0.0 Baso # 0.1 Sodium 130 L Potassium 3.5 L Chloride 91 L Carbon Dioxide 17 L Anion Gap 26 H BUN 8 L Creatinine 0.5 L Est GFR ( Amer) > 60 Est GFR (Non-Af Amer) > 60 POC Glucose (mg/dL) 124 H Random Glucose 114 H Calcium 8.8 Total Bilirubin 1.7 H AST 123 H ALT 88 H D Alkaline Phosphatase 108 Total Protein 9.0 H Albumin 5.0 Globulin 4.1 H Albumin/Globulin Ratio 1.2 Urine Opiates Screen Urine Methadone Screen Ur Barbiturates Screen Ur Phencyclidine Scrn Ur Amphetamines Screen U Benzodiazepines Scrn U Oth Cocaine Metabols U Cannabinoids Screen Alcohol, Quantitative 70 H 12/18/16 17:27 WBC RBC Hgb Hct MCV MCH MCHC RDW Plt Count MPV Neut % (Auto) Lymph % (Auto) Jerome % (Auto) Eos % (Auto) Baso % (Auto) Neut # Lymph # Jerome # Eos # Baso # Sodium Potassium Chloride Carbon Dioxide Anion Gap BUN Creatinine Est GFR ( Amer) Est GFR (Non-Af Amer) POC Glucose (mg/dL) Random Glucose Calcium Total Bilirubin AST ALT Alkaline Phosphatase Total Protein Albumin Globulin Albumin/Globulin Ratio Urine Opiates Screen Negative Urine Methadone Screen Negative Ur Barbiturates Screen Negative Ur Phencyclidine Scrn Negative Ur Amphetamines Screen Negative U Benzodiazepines Scrn Negative U Oth Cocaine Metabols Negative U Cannabinoids Screen Negative Alcohol, Quantitative Assessment & Plan (1) Alcohol use disorder, severe, dependence Assessment and Plan: CIWA Librium 25mg PO Q6hr Ativan 1mg IV Q3 PRN IV Fluids NS + Dextrose + 20mEq KCl Thiamine + Folic acid + Multivitamins Psychiatry consulted- Dr. Whalen, help appreciated Alcohol toxicology: 70 Amylase: f/u results Lipase: f/u results Status: Acute (2) Depression Assessment and Plan: Patient does not take medications for depression. Psychiatry consults- Dr. Whalen, help appreciated Status: Acute (3) Prophylactic measure Assessment and Plan: SCDs Regular diet CIWA Aspiration precautions Pepcid 20mg PO daily Status: Acute <Sergio Daley P - Last Filed: 12/19/16 07:33> Results - Vital Signs Recent Vital Signs: Last Vital Signs Temp 98.2 F 12/18/16 23:35 Pulse 98 H 12/18/16 23:35 Resp 20 12/18/16 23:35 BP 146/87 12/18/16 23:35 Pulse Ox 97 12/18/16 23:35 - Labs Result Diagrams: 12/18/16 17:12 12/18/16 17:12 Labs: Laboratory Results - last 24 hr 12/18/16 12/18/16 12/18/16 16:46 17:12 17:12 WBC 7.7 RBC 4.96 Hgb 16.8 Hct 48.3 MCV 97.4 H D MCH 33.8 H MCHC 34.7 RDW 13.3 Plt Count 153 D MPV 7.0 L Neut % (Auto) 82.4 H Lymph % (Auto) 10.9 L Jerome % (Auto) 6.0 Eos % (Auto) 0.0 Baso % (Auto) 0.7 Neut # 6.3 Lymph # 0.8 L Jerome # 0.5 Eos # 0.0 Baso # 0.1 Sodium 130 L Potassium 3.5 L Chloride 91 L Carbon Dioxide 17 L Anion Gap 26 H BUN 8 L Creatinine 0.5 L Est GFR ( Amer) > 60 Est GFR (Non-Af Amer) > 60 POC Glucose (mg/dL) 124 H Random Glucose 114 H Calcium 8.8 Total Bilirubin 1.7 H AST 123 H ALT 88 H D Alkaline Phosphatase 108 Total Protein 9.0 H Albumin 5.0 Globulin 4.1 H Albumin/Globulin Ratio 1.2 Urine Opiates Screen Urine Methadone Screen Ur Barbiturates Screen Ur Phencyclidine Scrn Ur Amphetamines Screen U Benzodiazepines Scrn U Oth Cocaine Metabols U Cannabinoids Screen Alcohol, Quantitative 70 H 12/18/16 17:27 WBC RBC Hgb Hct MCV MCH MCHC RDW Plt Count MPV Neut % (Auto) Lymph % (Auto) Jerome % (Auto) Eos % (Auto) Baso % (Auto) Neut # Lymph # Jerome # Eos # Baso # Sodium Potassium Chloride Carbon Dioxide Anion Gap BUN Creatinine Est GFR ( Amer) Est GFR (Non-Af Amer) POC Glucose (mg/dL) Random Glucose Calcium Total Bilirubin AST ALT Alkaline Phosphatase Total Protein Albumin Globulin Albumin/Globulin Ratio Urine Opiates Screen Negative Urine Methadone Screen Negative Ur Barbiturates Screen Negative Ur Phencyclidine Scrn Negative Ur Amphetamines Screen Negative U Benzodiazepines Scrn Negative U Oth Cocaine Metabols Negative U Cannabinoids Screen Negative Alcohol, Quantitative Attending/Attestation - Attestation I have personally seen and examined this patient.: Yes I have fully participated in the care of the patient.: Yes I have reviewed all pertinent clinical information: Yes Notes (Text): Assessment Alcohol withdrawal with tremors Alcohol ketosis Reactive depression Plan Librium, prn iv ativan, thiamine, mvt, fa, ivf, psych eval, see orders for detail.
[2016-12-18] MEDS ORDERED: DEXTROSE IV ONE (21:34)
[2016-12-18] MEDS ORDERED: POTASSIUM CHLORIDE IV ONE (21:34)
[2016-12-18] MEDS ORDERED: NS IV ONE (21:34)
[2016-12-18] MEDS ORDERED: Thiamine 100 mg/ml Inj IV ONE (21:45)
[2016-12-19 07:17] LABS: AMYLASE 100 U/L (30-110)
--- NOTE | 2016-12-19 09:33 | CP.PCM.PN ---
<Juan Alberto Monson - Last Filed: 12/19/16 12:28> Subjective - Date & Time of Evaluation Date of Evaluation: 12/19/16 Time of Evaluation: 09:31 - Subjective Subjective: PGY1 Medicine Note for Dr. Escobar Patient seen and examined this morning at bedside. Patient states that he has some epigastric pain that does not radiate anywhere. It is sharp and intermittent. He does not know what makes the pain better or worse other than pressing on it makes that pain better. Patient reports his shaking has improved. Denies any other complaints at this time. Objective - Vital Signs/Intake and Output Vital Signs (last 24 hours): Temp Pulse Resp BP Pulse Ox 98.0 F 85 20 152/108 H 98 12/19/16 08:29 12/19/16 08:29 12/19/16 08:29 12/19/16 08:29 12/19/16 08:29 Intake and Output: 12/19/16 12/19/16 06:59 18:59 Intake Total 750 Output Total 600 Balance 150 - Medications Medications: Current Medications Chlordiazepoxide (Librium) 25 mg PO Q6 [facility] Last Admin: 12/19/16 06:03 Dose: 25 mg Famotidine (Pepcid) 20 mg PO DAILY [facility] Folic Acid (Folic Acid) 1 mg PO DAILY [facility] Heparin Sodium (Porcine) (Heparin) 5,000 units SC Q12 [facility] Lorazepam (Ativan) 1 mg IVP Q3H PRN PRN Reason: Anxiety Last Admin: 12/19/16 03:11 Dose: 1 mg Multivitamins (Hexavitamin) 1 tab PO DAILY [facility] Thiamine HCl (Vitamin B1 Tab) 100 mg PO DAILY [facility] - Labs Labs: 12/18/16 17:12 12/18/16 17:12 - Constitutional Appears: Non-toxic, No Acute Distress - Head Exam Head Exam: ATRAUMATIC, NORMOCEPHALIC - Eye Exam Eye Exam: EOMI, Normal appearance - ENT Exam ENT Exam: Mucous Membranes Moist - Respiratory Exam Respiratory Exam: Clear to Ausculation Bilateral, NORMAL BREATHING PATTERN. absent: Accessory Muscle Use, Rales, Wheezes, Respiratory Distress - Cardiovascular Exam Cardiovascular Exam: REGULAR RHYTHM, +S1, +S2 - GI/Abdominal Exam GI & Abdominal Exam: Soft, Tenderness (epigastric tenderness, no radiation), Normal Bowel Sounds. absent: Distended, Firm, Guarding, Rigid - Extremities Exam Extremities Exam: Normal Inspection. absent: Calf Tenderness, Pedal Edema - Neurological Exam Neurological Exam: Alert, Awake, Oriented x3 - Psychiatric Exam Psychiatric exam: Normal Affect, Normal Mood - Skin Skin Exam: Dry, Warm. absent: Normal Color (slight yellow appearance) Assessment and Plan - Assessment and Plan (Free Text) Plan: Alcohol use disorder, severe, dependence CIWA Librium 25mg PO Q6hr Ativan 1mg IV Q3 PRN IV Fluids NS + Dextrose + 20mEq KCl Thiamine + Folic acid + Multivitamins Psychiatry consulted- Dr. Whalen, help appreciated Alcohol toxicology: 70 Amylase: 100 Lipase: 139 continue to monitor f/u mag and phos Depression Patient does not take medications for depression. Psychiatry consults- Dr. Whalen, help appreciated Prophylactic measure SCDs Regular diet CIWA Aspiration precautions Pepcid 20mg PO daily Case discussed with Dr. Luz Avendano Iona PGY1 <Gold Escobar H - Last Filed: 12/19/16 15:33> Objective - Vital Signs/Intake and Output Vital Signs (last 24 hours): Temp Pulse Resp BP Pulse Ox 98.0 F 85 20 152/108 H 98 12/19/16 08:29 12/19/16 08:29 12/19/16 08:29 12/19/16 08:29 12/19/16 08:29 Intake and Output: 12/19/16 12/19/16 06:59 18:59 Intake Total 750 260 Output Total 600 Balance 150 260 - Medications Medications: Current Medications Famotidine (Pepcid) 20 mg PO DAILY [facility] Last Admin: 12/19/16 10:05 Dose: 20 mg Folic Acid (Folic Acid) 1 mg PO DAILY [facility] Last Admin: 12/19/16 10:05 Dose: 1 mg Heparin Sodium (Porcine) (Heparin) 5,000 units SC Q12 [facility] Lorazepam (Ativan) 1 mg IVP Q3H PRN PRN Reason: Anxiety Last Admin: 12/19/16 03:11 Dose: 1 mg Lorazepam (Ativan) 1 mg PO Q4H PRN PRN Reason: Symptoms of alcohol withdrawl Lorazepam (Ativan) 1 mg PO Q6 [facility] PRN Reason: Taper Stop: 12/23/16 15:14 Multivitamins (Hexavitamin) 1 tab PO DAILY [facility] Last Admin: 10/17/17 10:05 Dose: 1 tab Sertraline HCl (Zoloft) 25 mg PO DAILY [facility] Thiamine HCl (Vitamin B1 Tab) 100 mg PO DAILY [facility] Last Admin: 12/19/16 10:05 Dose: 100 mg Trazodone HCl (Desyrel) 50 mg PO HS [facility] - Labs Labs: 12/18/16 17:12 12/18/16 17:12 PT 10.4 SECONDS (9.7-12.2) 12/19/16 11:39 INR 0.9 12/19/16 11:39 APTT 33 SECONDS (21-34) 12/19/16 11:39 Attending/Attestation - Attestation I have personally seen and examined this patient.: Yes I have fully participated in the care of the patient.: Yes I have reviewed all pertinent clinical information, including history, physical exam and plan: Yes
[2016-12-19] MEDS ORDERED: Enoxaparin 40 mg Syringe SC SCH (10:00)
[2016-12-19] MEDS: Multiple Vitamins Tab PO SCH (10:05)
[2016-12-19 11:52] LABS: INR 0.9
--- NOTE | 2016-12-19 14:36 | PCM.PSYCH ---
Initial Psychiatric Evaluation - Initial Psychiatric Evaluation Type of Admission: Voluntary Legal Status: Capacity Chief Complaint (in patient's own words): "I'm looking for help" Psych consult called for pt's desired alcohol detox and hx of depression History of Present Illness and Precipitating Events: Pt is a 41 year old male who presented to the ED 12/18/16 requesting alcohol detox. He denies a PMH other than alcohol use disorder. He is visibly and uncomfortable and in pain at bedside and was cooperative with questions but only able to provide short answers at the time of interview. The pt reports a history of depression precipitated by life stressors and coping with episodes of binge drinking. He began drinking heavily in 2009 after the of his mother and began again 3-4 years ago when his left him and "took the kids." His most recent relapse occurred ~3 weeks ago when he lost his job. He reports to have been drinking "as much as I could get" but could not specify. He has a history of multiple detoxes and rehabs which he was unable to specify. He also reports to have followed up with psych outpatient on a regular basis but discontinued his care for unspecified reasons. He denies the use of drugs and tobacco. At the time of interview, the pt reports depression and vague SI without a plan. He will be transferred to psych department. After discharge, he reports to be interested in rehab as well as psych followup at [facility]. Current Medications: Active Medications Generic Name Dose Route Start Last Admin Trade Name Freq PRN Reason Stop Dose Admin Famotidine 20 mg 12/19/16 10:00 12/19/16 10:05 Pepcid PO 20 mg DAILY [facility] Administration Folic Acid 1 mg 12/19/16 10:00 12/19/16 10:05 Folic Acid PO 1 mg DAILY [facility] Administration Heparin Sodium (Porcine) 5,000 units 12/19/16 10:00 Heparin SC Q12 [facility] Lorazepam 1 mg 12/18/16 21:40 12/19/16 03:11 Ativan IVP 1 mg Q3H PRN Administration Anxiety Multivitamins 1 tab 12/19/16 10:00 12/19/16 10:05 Hexavitamin PO 1 tab DAILY [facility] Administration Thiamine HCl 100 mg 12/19/16 10:00 12/19/16 10:05 Vitamin B1 Tab PO 100 mg DAILY [facility] Administration Past Psychiatric History - Past Psychiatric History Previous Treatment History: None Pertinent Medical Hx (Current Medical&Sleep Prob, Allergies): Allergies Allergy/AdvReac Type Severity Reaction Status Date / Time No Known Allergies Allergy Verified 10/14/16 16:18 No Known Home Med 12/18/16 Review of Systems - Review of Systems All systems: reviewed and no additional remarkable complaints except - Neurological Neurological: UNREMARKABLE - Psychiatric Psychiatric: Anxiety, Auditory Hallucinations, Depression, Irritability Mental Status Examination - Personal Presentation Personal Presentation: Looks stated age - Affect Affect: Constricted, Depressed - Motor Activity Motor Activity: Calm - Reliability in Providing Information Reliability in Providing Information: Fair - Speech Speech: Organized - Mood Mood: Depressed, Anxious - Formal Thought Process Formal Thought Process: Hallucinations - Hallucinations/Delusions Hallucinations: Auditory - Obsessions/Compulsions Obsessions: No Compulsions: No - Cognitive Functions Orientation: Person, Place, Situation, Time Sensorium: Alert Attention/Concentration: Attentive Abstract Thinking: [place] Estimate of Intelligence: Below average Judgement: Imparied, as evidence by: Poor judgement, Imparied, as evidence by: Lack of insight into illness Memory: Recent intact, as evidence by: Ability to recall events of the day, Remote intact, as evidenced by: Abilit to recall sig. life events - Risk Risk: Withdrawal, Diminished functioning - Limitations Limitations: Living alone DSM 5 DX - DSM 5 DSM 5 Diagnosis: Alcohol use disorder severe According withdrawal uncomplicated Major depressive disorder recurrent severe with psychotic features - Recommended/Plan of Treatment Treatment Recommendations and Plan of Treatment: Ativan taper Zoloft 25 mg PO daily [facility] Desyrel 50 mg PO HS [facility] Supportive therapy and psychoeducation [place] for abstinence CBT for relapse prevention Refer to after care - Smoking Cessation Smoking Cessation Initiated: No
--- NOTE | 2016-12-19 19:13 | CARD ---
APPROVED REPORT EKG Measurement Heart [id number] <Conclusion> Sinus tachycardia Otherwise normal ECG
[2016-12-20] MEDS ORDERED: Aluminum Hydroxide/Magnesium Hydroxide Susp (30 mL) PO ONE (00:30)
--- NOTE | 2016-12-20 07:57 | CP.PCM.PN ---
<Juan Alberto Monson - Last Filed: 12/20/16 14:07> Subjective - Date & Time of Evaluation Date of Evaluation: 12/20/16 Time of Evaluation: 07:46 - Subjective Subjective: PGY1 Medicine note for Dr. Escobar Patient seen and examined at bedside this morning. Patient states that he is experiencing headaches. He reports some dizziness upon stand but states his shaking is improving. The patient states he wants to shower. He denies any other complaints at this time. Denies f/c, n/v, d/c, sob, cp, numbness or tingling. Objective - Vital Signs/Intake and Output Vital Signs (last 24 hours): Temp Pulse Resp BP Pulse Ox 98.2 F 88 20 136/91 H 98 12/19/16 23:40 12/20/16 00:00 12/19/16 23:40 12/19/16 23:40 12/19/16 23:40 Intake and Output: 12/20/16 12/20/16 06:59 18:59 Intake Total 100 Output Total 250 Balance -150 - Medications Medications: Current Medications Famotidine (Pepcid) 20 mg PO DAILY [facility] Last Admin: 12/19/16 10:05 Dose: 20 mg Folic Acid (Folic Acid) 1 mg PO DAILY [facility] Last Admin: 12/19/16 10:05 Dose: 1 mg Heparin Sodium (Porcine) (Heparin) 5,000 units SC Q12 [facility] Lorazepam (Ativan) 1 mg IVP Q3H PRN PRN Reason: Anxiety Last Admin: 12/19/16 03:11 Dose: 1 mg Lorazepam (Ativan) 1 mg PO Q4H PRN PRN Reason: Symptoms of alcohol withdrawl Lorazepam (Ativan) 1 mg PO Q6 [facility] PRN Reason: Taper Stop: 12/23/16 15:14 Last Admin: 12/20/16 05:13 Dose: 1 mg Multivitamins (Hexavitamin) 1 tab PO DAILY [facility] Last Admin: 12/19/16 10:05 Dose: 1 tab Sertraline HCl (Zoloft) 25 mg PO DAILY [facility] Last Admin: 12/19/16 18:25 Dose: 25 mg Thiamine HCl (Vitamin B1 Tab) 100 mg PO DAILY [facility] Last Admin: 12/19/16 10:05 Dose: 100 mg Trazodone HCl (Desyrel) 50 mg PO HS [facility] Last Admin: 12/19/16 22:14 Dose: 50 mg - Labs Labs: 12/18/16 17:12 12/18/16 17:12 PT 10.4 SECONDS (9.7-12.2) 12/19/16 11:39 INR 0.9 12/19/16 11:39 APTT 33 SECONDS (21-34) 12/19/16 11:39 - Constitutional Appears: Non-toxic, No Acute Distress - Head Exam Head Exam: ATRAUMATIC, NORMOCEPHALIC - Eye Exam Eye Exam: EOMI, Normal appearance, Scleral icterus - ENT Exam ENT Exam: Mucous Membranes Moist - Respiratory Exam Respiratory Exam: Clear to Ausculation Bilateral, NORMAL BREATHING PATTERN. absent: Accessory Muscle Use, Rales, Wheezes, Respiratory Distress - Cardiovascular Exam Cardiovascular Exam: REGULAR RHYTHM, +S1, +S2 - GI/Abdominal Exam GI & Abdominal Exam: Soft, Normal Bowel Sounds. absent: Distended, Firm, Guarding, Rigid, Tenderness - Extremities Exam Extremities Exam: Normal Capillary Refill, Normal Inspection. absent: Calf Tenderness, Pedal Edema - Back Exam Back Exam: absent: CVA tenderness (L), CVA tenderness (R), paraspinal tenderness , tenderness, vertebral tenderness - Neurological Exam Neurological Exam: Alert, Awake, Oriented x3 Neuro motor strength exam: Left Upper Extremity: 5 (no tremor), Right Upper Extremity: 5 (no tremor), Left Lower Extremity: 5, Right Lower Extremity: 5 - Psychiatric Exam Psychiatric exam: Normal Affect, Normal Mood - Skin Skin Exam: Dry, Normal Color, Warm Assessment and Plan - Assessment and Plan (Free Text) Plan: Alcohol use disorder, severe, dependence CIWA Librium 25mg PO Q6hr Ativan 1mg IV Q3 PRN IV Fluids NS + Dextrose + 20mEq KCl Thiamine + Folic acid + Multivitamins Psychiatry consulted- Dr. Whalen, help appreciated Alcohol toxicology: 70 Amylase: 100 Lipase: 139 mag 1.9 phos 3.2 continue to monitor Depression Patient does not take medications for depression. Psychiatry consults- Dr. Whalen, help appreciated Prophylactic measure SCDs Regular diet CIWA Aspiration precautions Pepcid 20mg PO daily DISPO: if patient remains stable, will look to transfer patient to inpatient Psych, per psych note Case discussed with Dr. Luz Avendano Iona PGY1 <Escobar,Peter H - Last Filed: 12/20/16 14:22> Objective - Vital Signs/Intake and Output Vital Signs (last 24 hours): Temp Pulse Resp BP Pulse Ox 97.6 F 82 20 140/99 H 97 12/20/16 08:29 12/20/16 08:29 12/20/16 08:29 12/20/16 08:29 12/20/16 08:29 Intake and Output: 12/20/16 12/20/16 06:59 18:59 Intake Total 100 500 Output Total 250 Balance -150 500 - Medications Medications: Current Medications Famotidine (Pepcid) 20 mg PO DAILY [facility] Last Admin: 12/20/16 10:18 Dose: 20 mg Folic Acid (Folic Acid) 1 mg PO DAILY [facility] Last Admin: 12/20/16 10:17 Dose: 1 mg Heparin Sodium (Porcine) (Heparin) 5,000 units SC Q12 [facility] Lorazepam (Ativan) 1 mg IVP Q3H PRN PRN Reason: Anxiety Last Admin: 12/19/16 03:11 Dose: 1 mg Lorazepam (Ativan) 1 mg PO Q4H PRN PRN Reason: Symptoms of alcohol withdrawl Lorazepam (Ativan) 1 mg PO Q6 [facility] PRN Reason: Taper Stop: 12/23/16 15:14 Last Admin: 12/20/16 12:28 Dose: 1 mg Multivitamins (Hexavitamin) 1 tab PO DAILY [facility] Last Admin: 12/20/16 10:18 Dose: 1 tab Sertraline HCl (Zoloft) 25 mg PO DAILY [facility] Last Admin: 12/20/16 10:17 Dose: 25 mg Thiamine HCl (Vitamin B1 Tab) 100 mg PO DAILY [facility] Last Admin: 12/20/16 10:17 Dose: 100 mg Trazodone HCl (Desyrel) 50 mg PO HS [facility] Last Admin: 12/19/16 22:14 Dose: 50 mg - Labs Labs: 12/20/16 09:01 12/20/16 09:01 PT 10.4 SECONDS (9.7-12.2) 12/19/16 11:39 INR 0.9 12/19/16 11:39 APTT 33 SECONDS (21-34) 12/19/16 11:39 Attending/Attestation - Attestation I have personally seen and examined this patient.: Yes I have fully participated in the care of the patient.: Yes I have reviewed all pertinent clinical information, including history, physical exam and plan: Yes Notes (Text): Medical attending: Patient was seen and examined by me, agrees the above note by medical attendant. Today on physical exam the patient was not having any shakes or tremors. He does not have any night sweats or diaphoresis. He did report having some abdominal discomfort that he described as nausea. He was not vomiting. He reported minimal diarrhea. At this time were giving continue him on the tapering Librium as well as when necessary Ativan. He is also getting thiamine, folic acid, I was informed by the medical residents that there was some concern of potential suicidal ideation. This was secondary to the patient having a lot of stress with family members at home. At some point we'll see if the patient can move to either 5 E. or 7D. For further help with his depression and anxiety and potential suicidal ideation. Appreciate psychiatry evaluation the patient Thank you very much, Gold Escobar
[2016-12-20 09:14] LABS: BASO % 1.1 % (0.0-2.0); EOS # 0.2 K/uL (0.0-0.7); EOS % 3.9 % (0.0-4.0); HEMATOCRIT 47.2 % (35.0-51.0); LYMPH # 1.2 K/uL (1.0-4.3); LYMPH % 28.5 % (20.0-40.0); MEAN CELL VOLUME 99.3 fL (80.0-94.0); MEAN CORPUSCULAR HEMOGLOBIN 34.5 pg (27.0-31.0); MEAN CORPUSCULAR HGB CONC 34.8 g/dL (33.0-37.0); MEAN PLATELET VOLUME 7.5 fL (7.2-11.7); MONO # 0.3 K/uL (0.0-0.8); MONO % 7.5 % (0.0-10.0); NRBC % 0.1 % (0.0-2.0); RED CELL DISTRIBUTION WIDTH 13.8 % (11.5-14.5); WHITE BLOOD COUNT 4.3 K/uL (4.8-10.8)
[2016-12-20 09:28] LABS: CHLORIDE 93 mmol/L (98-107); POTASSIUM 3.7 mmol/L (3.6-5.2); SODIUM 132 mmol/L (132-148)
[2016-12-20 09:30] LABS: ALB/GLOB RATIO 1.1 (1.0-2.1); ALKALINE PHOSPHATASE 86 U/L (38-126); AST/SGOT 126 U/L (17-59); BILIRUBIN,TOTAL 2.1 mg/dL (0.2-1.3); BLOOD UREA NITROGEN 12 mg/dL (9-20); CARBON DIOXIDE 27 mmol/L (22-30); GFR AFRICAN-AMERICAN > 60; TOTAL PROTEIN 8.8 g/dL (6.3-8.3)
[2016-12-20 09:31] LABS: ALT/SGPT 92 U/L (21-72); CALCIUM 9.4 mg/dl (8.6-10.4); GLUCOSE,RANDOM 110 mg/dL (75-110); MAGNESIUM 1.9 mg/dL (1.6-2.3); PHOSPHOROUS 3.2 mg/dL (2.5-4.5)
[2016-12-20] MEDS: Multiple Vitamins Tab PO SCH (10:18)
--- NOTE | 2016-12-21 07:04 | CP.PCM.PN ---
<Juan Alberto Monson - Last Filed: 12/21/16 13:46> Subjective - Date & Time of Evaluation Date of Evaluation: 12/21/16 Time of Evaluation: 07:03 - Subjective Subjective: PGY1 Medicine Note for Dr. Escobar Patient seen and examined at bedside this morning. Patient states he is feeling well physically but is still really depressed and he wants to talk to some one. He reports some loose stools yesterday but had a normal bowel movement this morning. Patient reports some intermittent blurry vision for two days. He does not wear glasses at home. Patient denies f/c, n/v, sob, cp, abdominal pain, headaches, numbness, tingling or tremors. Objective - Vital Signs/Intake and Output Vital Signs (last 24 hours): Temp Pulse Resp BP Pulse Ox 98.3 F 95 H 20 137/88 97 12/20/16 23:40 12/21/16 00:00 12/20/16 23:40 12/20/16 23:40 12/20/16 15:10 - Medications Medications: Current Medications Famotidine (Pepcid) 20 mg PO DAILY [facility] Last Admin: 12/20/16 10:18 Dose: 20 mg Folic Acid (Folic Acid) 1 mg PO DAILY [facility] Last Admin: 12/20/16 10:17 Dose: 1 mg Heparin Sodium (Porcine) (Heparin) 5,000 units SC Q12 [facility] Lorazepam (Ativan) 1 mg IVP Q3H PRN PRN Reason: Anxiety Last Admin: 12/19/16 03:11 Dose: 1 mg Lorazepam (Ativan) 1 mg PO Q4H PRN PRN Reason: Symptoms of alcohol withdrawl Lorazepam (Ativan) 1 mg PO Q6 [facility] PRN Reason: Taper Stop: 12/23/16 15:14 Last Admin: 12/21/16 05:43 Dose: 1 mg Multivitamins (Hexavitamin) 1 tab PO DAILY [facility] Last Admin: 12/20/16 10:18 Dose: 1 tab Sertraline HCl (Zoloft) 25 mg PO DAILY [facility] Last Admin: 12/20/16 10:17 Dose: 25 mg Thiamine HCl (Vitamin B1 Tab) 100 mg PO DAILY [facility] Last Admin: 12/20/16 10:17 Dose: 100 mg Trazodone HCl (Desyrel) 50 mg PO HS [facility] Last Admin: 12/20/16 21:12 Dose: 50 mg - Labs Labs: 12/20/16 09:01 12/20/16 09:01 PT 10.4 SECONDS (9.7-12.2) 12/19/16 11:39 INR 0.9 12/19/16 11:39 APTT 33 SECONDS (21-34) 12/19/16 11:39 - Constitutional Appears: No Acute Distress - Head Exam Head Exam: ATRAUMATIC, NORMOCEPHALIC - Eye Exam Eye Exam: EOMI, Normal appearance, Scleral icterus - ENT Exam ENT Exam: Mucous Membranes Moist - Respiratory Exam Respiratory Exam: Clear to Ausculation Bilateral, NORMAL BREATHING PATTERN. absent: Accessory Muscle Use, Rales, Wheezes, Respiratory Distress - Cardiovascular Exam Cardiovascular Exam: REGULAR RHYTHM, +S1, +S2 - GI/Abdominal Exam GI & Abdominal Exam: Soft, Normal Bowel Sounds. absent: Distended, Firm, Guarding, Rigid, Tenderness - Extremities Exam Extremities Exam: Normal Capillary Refill, Normal Inspection. absent: Calf Tenderness, Pedal Edema - Neurological Exam Neurological Exam: Alert, Awake, Oriented x3 - Psychiatric Exam Psychiatric exam: Normal Affect, Normal Mood - Skin Skin Exam: Dry, Normal Color, Warm Assessment and Plan - Assessment and Plan (Free Text) Plan: Alcohol use disorder, severe, dependence CIWA Librium 25mg PO Q6hr Ativan 1mg IV Q3 PRN IV Fluids NS + Dextrose + 20mEq KCl Thiamine + Folic acid + Multivitamins Psychiatry consulted- Dr. Whalen, help appreciated Alcohol toxicology: 70 Amylase: 100 Lipase: 139 mag 1.8 phos 4.2 continue to monitor Depression Patient does not take medications for depression. Psychiatry consults- Dr. Whalen, help appreciated Discussed case with Dr. Israel, patient will be transferred over to [facility]. Prophylactic measure SCDs Regular diet CIWA Aspiration precautions Pepcid 20mg PO daily Case discussed with Dr. Luz Valencian PGY1 <Gold Escobar - Last Filed: 12/21/16 14:19> Objective - Vital Signs/Intake and Output Vital Signs (last 24 hours): Temp Pulse Resp BP Pulse Ox 98.2 F 77 20 117/79 96 12/21/16 08:23 12/21/16 08:23 12/21/16 08:23 12/21/16 08:23 12/21/16 08:23 - Medications Medications: Current Medications Famotidine (Pepcid) 20 mg PO DAILY [facility] Last Admin: 12/21/16 09:35 Dose: 20 mg Folic Acid (Folic Acid) 1 mg PO DAILY [facility] Last Admin: 12/21/16 09:35 Dose: 1 mg Heparin Sodium (Porcine) (Heparin) 5,000 units SC Q12 [facility] Lorazepam (Ativan) 1 mg IVP Q3H PRN PRN Reason: Anxiety Last Admin: 12/19/16 03:11 Dose: 1 mg Lorazepam (Ativan) 1 mg PO Q4H PRN PRN Reason: Symptoms of alcohol withdrawl Lorazepam (Ativan) 1 mg PO Q8 [facility] PRN Reason: Taper Stop: 12/23/16 17:59 Multivitamins (Hexavitamin) 1 tab PO DAILY [facility] Last Admin: 12/21/16 09:35 Dose: 1 tab Sertraline HCl (Zoloft) 50 mg PO DAILY [facility] Thiamine HCl (Vitamin B1 Tab) 100 mg PO DAILY [facility] Last Admin: 12/21/16 09:35 Dose: 100 mg Trazodone HCl (Desyrel) 50 mg PO HS [facility] Last Admin: 12/20/16 21:12 Dose: 50 mg - Labs Labs: 12/21/16 07:29 12/21/16 07:29 PT 10.4 SECONDS (9.7-12.2) 12/19/16 11:39 INR 0.9 12/19/16 11:39 APTT 33 SECONDS (21-34) 12/19/16 11:39 Attending/Attestation - Attestation I have personally seen and examined this patient.: Yes I have fully participated in the care of the patient.: Yes I have reviewed all pertinent clinical information, including history, physical exam and plan: Yes Notes (Text): Medical Attending: Patient was seen and examined by me. The patient reported he was feeling better. He denied having any shakes or tremors. He also denied having stomach cramps, denied having diarrhea. He remains on librium at this time with PRN ativan Hopefully at some point can be moved to 5E or 7D thank you Gold Escobar
[2016-12-21 07:39] LABS: BASO # 0.1 K/uL (0.0-0.2); BASO % 1.3 % (0.0-2.0); EOS # 0.3 K/uL (0.0-0.7); EOS % 6.2 % (0.0-4.0); HEMATOCRIT 40.9 % (35.0-51.0); LYMPH # 1.7 K/uL (1.0-4.3); LYMPH % 36.3 % (20.0-40.0); MEAN CORPUSCULAR HEMOGLOBIN 35.2 pg (27.0-31.0); MEAN CORPUSCULAR HGB CONC 35.6 g/dL (33.0-37.0); MEAN PLATELET VOLUME 7.8 fL (7.2-11.7); MONO # 0.5 K/uL (0.0-0.8); MONO % 9.7 % (0.0-10.0); NRBC % 0.2 % (0.0-2.0); RED CELL DISTRIBUTION WIDTH 13.6 % (11.5-14.5); WHITE BLOOD COUNT 4.8 K/uL (4.8-10.8)
[2016-12-21 08:09] LABS: CHLORIDE 95 mmol/L (98-107); SODIUM 131 mmol/L (132-148)
[2016-12-21 08:10] LABS: POTASSIUM 3.4 mmol/L (3.6-5.2)
[2016-12-21 08:12] LABS: ALB/GLOB RATIO 1.2 (1.0-2.1); ALKALINE PHOSPHATASE 77 U/L (38-126); ALT/SGPT 110 U/L (21-72); AST/SGOT 155 U/L (17-59); BILIRUBIN,TOTAL 1.3 mg/dL (0.2-1.3); BLOOD UREA NITROGEN 12 mg/dL (9-20); CARBON DIOXIDE 24 mmol/L (22-30); GFR AFRICAN-AMERICAN > 60; GLUCOSE,RANDOM 90 mg/dL (75-110); PHOSPHOROUS 4.2 mg/dL (2.5-4.5); TOTAL PROTEIN 7.6 g/dL (6.3-8.3)
[2016-12-21 08:13] LABS: CALCIUM 8.8 mg/dl (8.6-10.4); MAGNESIUM 1.8 mg/dL (1.6-2.3)
[2016-12-21] MEDS: Multiple Vitamins Tab PO SCH (09:35)
--- NOTE | 2016-12-21 13:31 | PCM.PYCHPN ---
Psychiatric Progress Note - Psychiatric Progress Note Patient seen today, length of contact: 16 min Patient Chief Complaint: "Depressed" Problems Identified/Issues Discussed: The pt is seen, chart reviewed, case discussed with staff. The pt is compliant with medications and reports no side-effects. Symptoms are improving but needs more time to stabilize. He will be transferred to [facility] as he is still very depressed He is worried about being homeless soon. After care discussed, support and psychoeducation given. Medication Change: Yes (increase zoloft) Medical Record Reviewed: Yes Mental Status Examination - Cognitive Function Orientation: Person, Place, Situation, Time Memory: Intact Attention: WNL Concentration: Poor Association: WNL Fund of Knowledge: WNL - Mood Mood: Depressed, Anxious - Affect Affect: Constricted, Depressed - Speech Speech: Appropriate - Formal Thought Process Formal Thought Process: No Impairment - Suicidal Ideation Suicidal Ideation: No - Homicidal Ideation Homicidal Ideation: No Goal/Treatment Plan - Goal/Treatment Plan Need for Continued Stay: Discharge may exacerbated symptoms, Severe functional impairment Progress Toward Problem(s) and Goals/Treatment Plan: Continue medications Gabapentin for augmentation Attend groups and activities Supportive therapy and psychoeducation [place] for abstinence CBT for relapse prevention Encourage MAT Refer to rehab or IOP Attend self-help groups as well Estimated Date of D/C: 12/26/16 - Smoking Cessation Smoking Cessation Initiated: Yes
--- NOTE | 2016-12-21 19:54 | PCM.BM ---
<Margret Barkley - Last Filed: 12/21/16 19:53> Treatment Plan Problems - Problems identified on initial assessmt Depression Date Initiated: 12/21/16 Time Initiated: 14:50 Assessment reference: NA Status: Active Treatment assets and liabiliti Patient Assests: cooperative, insightful, ADL independent Patient Liabilities: poor support system, relationship conflicts, substance abuse (ETOH) - Milieu Protocol Maintain good personal hygiene: daily Encourage regular showers, daily Remind patient to perform daily oral care Conduct patient checks and document Observation sheet: Q15 minutes Maintain personal safety: every shift Educate patient to report safety concerns to staff, every shift Monitor environment for contraband/sharps Medication safety: Monitor for expected outcome, potential side effects: every shift, Assess barriers to learning: every shift, Assess readiness for medication education: every shift Milieu Narrative: Continue medications Gabapentin for augmentation Attend groups and activities Supportive therapy and psychoeducation [place] for abstinence CBT for relapse prevention Encourage MAT Refer to rehab or IOP Attend self-help groups as well Discharge/Continuing Care - Treatment Team Participation Patient/Family/SO Statement: Continue medications Gabapentin for augmentation Attend groups and activities Supportive therapy and psychoeducation [place] for abstinence CBT for relapse prevention Encourage MAT Refer to rehab or IOP Attend self-help groups as well <Carmen Israel - Last Filed: 12/22/16 13:13> - Diagnosis (1) Alcohol use disorder, severe, dependence Status: Acute Interventions: 12/22/16 13:13 * Assess 7x/week regarding severity of withdrawal * Educate regarding risks, benefits, side effects and alternatives of medications * Use Motivational Interviewing for abstinence * Use CBT for relapse prevention * Medication management for withdrawal symptoms * Encourage medication assisted treatment * (2) Depression Status: Acute Interventions: 12/22/16 13:13 * Assess/adjust medications daily and /or as needed * See patient on an individual basis 7x/week to assess symptoms of depression * Monitor for side effects & effectiveness of medications * <Marya Castillo - Last Filed: 12/25/16 10:48> Family Contact Family involvement: Famliy/SO not involved - Goals for Treatment Patient goals for treatment: "I want to go home." Discharge/Continuing Care - Education Needs Education Needs: Patient Medication, Patient Coping Skills, Patient Community resources - Discharge Discharge Criteria: Tolerates medication w/o severe side effects, No longer exhibiting s/s of withdrawal, Reduction of target symptoms Discharge to:: Home - Treatment Team Participation Was Patient/Family/SO present at Treatment Team Meeting: Yes
[2016-12-22 08:19] LABS: BASO % 0.8 % (0.0-2.0); EOS # 0.3 K/uL (0.0-0.7); EOS % 4.4 % (0.0-4.0); HEMATOCRIT 41.7 % (35.0-51.0); LYMPH # 1.2 K/uL (1.0-4.3); LYMPH % 18.8 % (20.0-40.0); MEAN CELL VOLUME 98.8 fL (80.0-94.0); MEAN CORPUSCULAR HEMOGLOBIN 35.2 pg (27.0-31.0); MEAN CORPUSCULAR HGB CONC 35.6 g/dL (33.0-37.0); MEAN PLATELET VOLUME 7.5 fL (7.2-11.7); MONO # 0.6 K/uL (0.0-0.8); MONO % 8.7 % (0.0-10.0); NRBC % 0.1 % (0.0-2.0); RED CELL DISTRIBUTION WIDTH 13.7 % (11.5-14.5); WHITE BLOOD COUNT 6.4 K/uL (4.8-10.8)
[2016-12-22 08:37] LABS: CHLORIDE 96 mmol/L (98-107); POTASSIUM 3.4 mmol/L (3.6-5.2); SODIUM 132 mmol/L (132-148)
[2016-12-22 08:39] LABS: ALB/GLOB RATIO 1.2 (1.0-2.1); AST/SGOT 206 U/L (17-59); BILIRUBIN,TOTAL 1.2 mg/dL (0.2-1.3); CARBON DIOXIDE 26 mmol/L (22-30); GFR AFRICAN-AMERICAN > 60; TOTAL PROTEIN 7.8 g/dL (6.3-8.3)
[2016-12-22 08:40] LABS: ALKALINE PHOSPHATASE 73 U/L (38-126); ALT/SGPT 167 U/L (21-72); BLOOD UREA NITROGEN 12 mg/dL (9-20); CALCIUM 8.9 mg/dl (8.6-10.4); GLUCOSE,RANDOM 89 mg/dL (75-110); MAGNESIUM 1.9 mg/dL (1.6-2.3); PHOSPHOROUS 4.1 mg/dL (2.5-4.5)
--- NOTE | 2016-12-22 09:35 | CP.PCM.PN ---
Subjective - Date & Time of Evaluation Date of Evaluation: 12/22/16 Time of Evaluation: 09:32 - Subjective Subjective: PGY1 Medicine Note for Dr. Escobar Patient seen and examined this morning at bedside. Patient is feeling well and likes the freedom to walk around and socialize in the inpatient psych unit. Objective - Vital Signs/Intake and Output Vital Signs (last 24 hours): Temp Pulse Resp BP Pulse Ox 98.3 F 83 19 126/85 96 12/22/16 07:47 12/22/16 07:47 12/22/16 07:47 12/22/16 07:47 12/21/16 08:23 - Medications Medications: Current Medications Famotidine (Pepcid) 20 mg PO DAILY [facility] Last Admin: 12/21/16 09:35 Dose: 20 mg Folic Acid (Folic Acid) 1 mg PO DAILY [facility] Last Admin: 12/21/16 09:35 Dose: 1 mg Gabapentin (Neurontin) 300 mg PO BID [facility] Last Admin: 12/21/16 17:41 Dose: 300 mg Heparin Sodium (Porcine) (Heparin) 5,000 units SC Q12 [facility] Lorazepam (Ativan) 1 mg IVP Q3H PRN PRN Reason: Anxiety Last Admin: 12/19/16 03:11 Dose: 1 mg Lorazepam (Ativan) 1 mg PO Q4H PRN PRN Reason: Symptoms of alcohol withdrawl Last Admin: 12/21/16 22:39 Dose: 1 mg Lorazepam (Ativan) 1 mg PO Q8 [facility] PRN Reason: Taper Stop: 12/23/16 17:59 Last Admin: 12/22/16 06:07 Dose: 1 mg Multivitamins (Hexavitamin) 1 tab PO DAILY [facility] Last Admin: 12/21/16 09:35 Dose: 1 tab Pneumococcal Polyvalent Vaccine (Pneumovax 23 Vaccine) 0.5 ml IM .ONCE ONE Stop: 12/24/16 10:01 Sertraline HCl (Zoloft) 50 mg PO DAILY [facility] Thiamine HCl (Vitamin B1 Tab) 100 mg PO DAILY [facility] Last Admin: 12/21/16 09:35 Dose: 100 mg Trazodone HCl (Desyrel) 50 mg PO HS [facility] Last Admin: 12/21/16 21:31 Dose: 50 mg - Labs Labs: 12/22/16 08:00 12/22/16 08:00 PT 10.4 SECONDS (9.7-12.2) 12/19/16 11:39 INR 0.9 12/19/16 11:39 APTT 33 SECONDS (21-34) 12/19/16 11:39 - Constitutional Appears: Non-toxic, No Acute Distress - Head Exam Head Exam: ATRAUMATIC, NORMOCEPHALIC - Eye Exam Eye Exam: EOMI, Normal appearance. absent: Scleral icterus - ENT Exam ENT Exam: Mucous Membranes Moist - Respiratory Exam Respiratory Exam: NORMAL BREATHING PATTERN. absent: Accessory Muscle Use, Respiratory Distress - Neurological Exam Neurological Exam: Alert, Awake - Psychiatric Exam Psychiatric exam: Normal Affect, Normal Mood - Skin Skin Exam: Dry, Normal Color, Warm Assessment and Plan - Assessment and Plan (Free Text) Plan: Depression Patient is now voluntary inpatient in the psych unit. Patient does not take medications for depression. Psychiatry consults- Dr. Whalen, help appreciated Alcohol use disorder, severe, dependence CIWA Librium 25mg PO Q6hr Ativan 1mg IV Q3 PRN IV Fluids NS + Dextrose + 20mEq KCl Thiamine + Folic acid + Multivitamins Psychiatry consulted- Dr. Whalen, help appreciated Alcohol toxicology: 70 Amylase: 100 Lipase: 139 mag 1.9 phos 4.1 continue to monitor Prophylactic measure SCDs Regular diet CIWA Aspiration precautions Pepcid 20mg PO daily Medicine team signing off. Please re-consult as needed. Case discussed with Dr. Luz Avendano Iona PGY1
[2016-12-22] MEDS: Multiple Vitamins Tab PO SCH (12:21)
--- NOTE | 2016-12-22 13:13 | PCM.PYCHPN ---
Psychiatric Progress Note - Psychiatric Progress Note Patient seen today, length of contact: 16 min Patient Chief Complaint: "Anxious today" Problems Identified/Issues Discussed: The pt is seen, chart reviewed, case discussed with staff. Support given, CBT and [place] used briefly No new symptoms reported, improving slowly and needs more time No SEs from medications, risks discussed. After care discussed, he is interested in rehabs but more interested in getting a letter for his landlord so that he won;t be evicted. Medication Change: Yes (increase zoloft) Medical Record Reviewed: Yes Mental Status Examination - Cognitive Function Orientation: Person, Place, Situation, Time Memory: Intact Attention: WNL Concentration: Poor Association: WNL Fund of Knowledge: WNL - Mood Mood: Depressed, Anxious - Affect Affect: Constricted, Depressed - Speech Speech: Appropriate - Formal Thought Process Formal Thought Process: No Impairment - Suicidal Ideation Suicidal Ideation: No - Homicidal Ideation Homicidal Ideation: No Goal/Treatment Plan - Goal/Treatment Plan Need for Continued Stay: Discharge may exacerbated symptoms, Severe functional impairment Progress Toward Problem(s) and Goals/Treatment Plan: Continue medications, zoloft being increased Gabapentin for augmentation Attend groups and activities Supportive therapy and psychoeducation [place] for abstinence CBT for relapse prevention Encourage MAT Refer to rehab or IOP Attend self-help groups as well Estimated Date of D/C: 12/26/16
[2016-12-23 08:15] LABS: BASO # 0.1 K/uL (0.0-0.2); BASO % 0.9 % (0.0-2.0); EOS # 0.3 K/uL (0.0-0.7); EOS % 3.8 % (0.0-4.0); HEMATOCRIT 42.7 % (35.0-51.0); LYMPH # 1.6 K/uL (1.0-4.3); LYMPH % 24.7 % (20.0-40.0); MEAN CELL VOLUME 100.1 fL (80.0-94.0); MEAN CORPUSCULAR HGB CONC 34.9 g/dL (33.0-37.0); MEAN PLATELET VOLUME 7.6 fL (7.2-11.7); MONO # 0.8 K/uL (0.0-0.8); MONO % 11.4 % (0.0-10.0); NRBC % 0.1 % (0.0-2.0); RED CELL DISTRIBUTION WIDTH 14.3 % (11.5-14.5); WHITE BLOOD COUNT 6.6 K/uL (4.8-10.8)
[2016-12-23 08:33] LABS: CHLORIDE 96 mmol/L (98-107); POTASSIUM 4.5 mmol/L (3.6-5.2); SODIUM 132 mmol/L (132-148)
[2016-12-23 08:35] LABS: ALB/GLOB RATIO 1.5 (1.0-2.1); ALKALINE PHOSPHATASE 77 U/L (38-126); AST/SGOT 179 U/L (17-59); BILIRUBIN,TOTAL 0.9 mg/dL (0.2-1.3); CARBON DIOXIDE 26 mmol/L (22-30); GFR AFRICAN-AMERICAN > 60; TOTAL PROTEIN 7.3 g/dL (6.3-8.3)
[2016-12-23 08:36] LABS: ALT/SGPT 183 U/L (21-72); BLOOD UREA NITROGEN 13 mg/dL (9-20); CALCIUM 9.1 mg/dl (8.6-10.4); GLUCOSE,RANDOM 92 mg/dL (75-110); PHOSPHOROUS 4.1 mg/dL (2.5-4.5)
[2016-12-23] MEDS: Multiple Vitamins Tab PO SCH (10:08)
[2016-12-23] MEDS ORDERED: Potassium Chloride 20 mEq ER Tab PO ONE (14:00)
--- NOTE | 2016-12-23 19:34 | PCM.PYCHPN ---
Psychiatric Progress Note - Psychiatric Progress Note Patient seen today, length of contact: 16 min Patient Chief Complaint: I'm feeling better Problems Identified/Issues Discussed: Patient was seen. Chart was reviewed important content noted. Nurse input received. Patient has no new complaints. No events overnight. Patient slept well and is eating well. Patient reproved that he is feeling better. However, he still had paranoid delusion and talk to himself to calm himself down. He denies suicidal or homicidal ideation. Patient does not report hallucinations. He denied etoh withdrawal symptoms, but he still had tremors and tongue fascinations. Patient has remained in good clinical and behavioral control. Patient is finding medications beneficial and would like to continue with treatment plan. Patient appreciated that treatment team is trying to help. Diagnostic Results: reviewed AST AND ALT TRENDING BETTER DSM 5 Symptoms Update: Etoh use disorder, severe, withdrawal MDD Medication Change: Yes (increase zoloft) Medical Record Reviewed: Yes Mental Status Examination - Cognitive Function Orientation: Person, Place, Situation, Time Memory: Intact Attention: WNL Concentration: Poor Association: WNL Fund of Knowledge: WNL Addtional comments: POSITIVE TREMORS AND TONGUE FASCICULATION - Mood Mood: Depressed - Affect Affect: Constricted, Depressed - Speech Speech: Appropriate - Formal Thought Process Formal Thought Process: No Impairment - Suicidal Ideation Suicidal Ideation: No - Homicidal Ideation Homicidal Ideation: No Goal/Treatment Plan - Goal/Treatment Plan Need for Continued Stay: Discharge may exacerbated symptoms, Severe functional impairment Progress Toward Problem(s) and Goals/Treatment Plan: Continue medications Gabapentin for augmentation Attend groups and activities Supportive therapy and psychoeducation [place] for abstinence CBT for relapse prevention Encourage MAT Refer to rehab or IOP Estimated Date of D/C: 12/26/16 - Smoking Cessation Smoking Cessation Initiated: Yes
[2016-12-24 08:54] LABS: BASO % 0.8 % (0.0-2.0); EOS # 0.2 K/uL (0.0-0.7); EOS % 2.9 % (0.0-4.0); HEMATOCRIT 45.4 % (35.0-51.0); LYMPH # 1.4 K/uL (1.0-4.3); LYMPH % 23.1 % (20.0-40.0); MEAN CELL VOLUME 100.2 fL (80.0-94.0); MEAN CORPUSCULAR HEMOGLOBIN 35.3 pg (27.0-31.0); MEAN CORPUSCULAR HGB CONC 35.2 g/dL (33.0-37.0); MEAN PLATELET VOLUME 7.3 fL (7.2-11.7); MONO # 0.7 K/uL (0.0-0.8); MONO % 11.8 % (0.0-10.0); NRBC % 0.1 % (0.0-2.0)
[2016-12-24 09:19] LABS: CHLORIDE 96 mmol/L (98-107); SODIUM 134 mmol/L (132-148)
[2016-12-24 09:21] LABS: BILIRUBIN,TOTAL 0.8 mg/dL (0.2-1.3); GFR AFRICAN-AMERICAN > 60
[2016-12-24 09:22] LABS: ALB/GLOB RATIO 1.1 (1.0-2.1); ALKALINE PHOSPHATASE 76 U/L (38-126); ALT/SGPT 226 U/L (21-72); AST/SGOT 168 U/L (17-59); BLOOD UREA NITROGEN 13 mg/dL (9-20); CARBON DIOXIDE 29 mmol/L (22-30); GLUCOSE,RANDOM 88 mg/dL (75-110); TOTAL PROTEIN 8.6 g/dL (6.3-8.3)
[2016-12-24 09:23] LABS: CALCIUM 9.5 mg/dl (8.6-10.4); MAGNESIUM 2.2 mg/dL (1.6-2.3)
[2016-12-24] MEDS ORDERED: Pneumococcal 23-Valent Vaccine IM ONE (10:00)
[2016-12-24] MEDS: Multiple Vitamins Tab PO SCH (10:47)
--- NOTE | 2016-12-24 18:13 | PCM.PYCHPN ---
Psychiatric Progress Note - Psychiatric Progress Note Patient seen today, length of contact: 16 min Patient Chief Complaint: I'm feeling better Problems Identified/Issues Discussed: Patient was seen. Chart was reviewed important content noted. Nurse input received. Patient has no new complaints. No events overnight. Patient slept well and is eating well. Patient reproved that he is feeling better. However, he still had paranoid delusion and talk to himself to calm himself down. He denies suicidal or homicidal ideation. Patient does not report hallucinations. He denied etoh withdrawal symptoms, but he still had tremors and tongue fascinations. Patient has remained in good clinical and behavioral control. Patient is finding medications beneficial and would like to continue with treatment plan. Patient appreciated that treatment team is trying to help. Diagnostic Results: reviewed DSM 5 Symptoms Update: MDD Etoh use d/o Medication Change: Yes (increase trazadone) Medical Record Reviewed: Yes Mental Status Examination - Cognitive Function Orientation: Person, Place, Situation, Time Memory: Intact Attention: WNL Concentration: Poor Association: WNL Fund of Knowledge: WNL - Mood Mood: Depressed - Affect Affect: Constricted, Depressed - Speech Speech: Appropriate - Formal Thought Process Formal Thought Process: No Impairment Psychotic Thoughts and Behaviors: denied - Suicidal Ideation Suicidal Ideation: No - Homicidal Ideation Homicidal Ideation: No Goal/Treatment Plan - Goal/Treatment Plan Need for Continued Stay: Remain at risks for inpatient hospitalization, Discharge may exacerbated symptoms, Severe functional impairment Progress Toward Problem(s) and Goals/Treatment Plan: Continue medications Increase Trazodone 100 mg po HS Gabapentin for augmentation Attend groups and activities Supportive therapy and psychoeducation [place] for abstinence CBT for relapse prevention Encourage MAT Refer to rehab or IOP Estimated Date of D/C: 12/26/16
[2016-12-25 08:12] VITALS: O2SAT 99
[2016-12-25 08:19] LABS: BASO # 0.1 K/uL (0.0-0.2); BASO % 0.9 % (0.0-2.0); EOS # 0.2 K/uL (0.0-0.7); EOS % 3.3 % (0.0-4.0); HEMATOCRIT 42.4 % (35.0-51.0); LYMPH # 1.9 K/uL (1.0-4.3); LYMPH % 32.8 % (20.0-40.0); MEAN CELL VOLUME 99.4 fL (80.0-94.0); MEAN CORPUSCULAR HEMOGLOBIN 34.9 pg (27.0-31.0); MEAN CORPUSCULAR HGB CONC 35.1 g/dL (33.0-37.0); MEAN PLATELET VOLUME 7.5 fL (7.2-11.7); MONO # 0.8 K/uL (0.0-0.8); MONO % 13.1 % (0.0-10.0); NRBC % 0.1 % (0.0-2.0); RED CELL DISTRIBUTION WIDTH 13.8 % (11.5-14.5); WHITE BLOOD COUNT 5.8 K/uL (4.8-10.8)
[2016-12-25 08:34] LABS: CHLORIDE 95 mmol/L (98-107); POTASSIUM 4.2 mmol/L (3.6-5.2); SODIUM 133 mmol/L (132-148)
[2016-12-25 08:36] LABS: GFR AFRICAN-AMERICAN > 60
[2016-12-25 08:37] LABS: ALB/GLOB RATIO 1.5 (1.0-2.1); ALKALINE PHOSPHATASE 78 U/L (38-126); ALT/SGPT 181 U/L (21-72); AST/SGOT 111 U/L (17-59); BILIRUBIN,TOTAL 0.8 mg/dL (0.2-1.3); BLOOD UREA NITROGEN 14 mg/dL (9-20); CARBON DIOXIDE 29 mmol/L (22-30); GLUCOSE,RANDOM 84 mg/dL (75-110); PHOSPHOROUS 3.8 mg/dL (2.5-4.5); TOTAL PROTEIN 7.4 g/dL (6.3-8.3)
[2016-12-25 08:38] LABS: CALCIUM 8.9 mg/dl (8.6-10.4); MAGNESIUM 2.3 mg/dL (1.6-2.3)
[2016-12-25] MEDS: Multiple Vitamins Tab PO SCH (09:37)
--- NOTE | 2016-12-25 15:27 | PCM.PYCHPN ---
Psychiatric Progress Note - Psychiatric Progress Note Patient seen today, length of contact: 16 min Patient Chief Complaint: "I feel so so today" Problems Identified/Issues Discussed: The pt is seen, chart reviewed, case discussed with staff. Support given, CBT and OR used briefly No new symptoms reported, improving slowly and needs more time No SEs from medications, risks discussed. After care discussed, he is interested in going to [facility] but more interested in getting a letter for his landlord so that he won't be evicted. Medication Change: Yes Medical Record Reviewed: Yes Mental Status Examination - Cognitive Function Orientation: Person, Place, Situation, Time Memory: Intact Attention: WNL Concentration: Poor Association: WNL Fund of Knowledge: WNL - Mood Mood: Depressed - Affect Affect: Constricted, Depressed - Speech Speech: Appropriate - Formal Thought Process Formal Thought Process: No Impairment - Suicidal Ideation Suicidal Ideation: No - Homicidal Ideation Homicidal Ideation: No Goal/Treatment Plan - Goal/Treatment Plan Need for Continued Stay: Remain at risks for inpatient hospitalization, Discharge may exacerbated symptoms, Severe functional impairment Progress Toward Problem(s) and Goals/Treatment Plan: Continue medications at current doses Gabapentin for augmentation Attend groups and activities Supportive therapy and psychoeducation [place] for abstinence CBT for relapse prevention Encourage MAT Refer to IOP at [facility] Encouraged to attend self-help groups as well like AA Estimated Date of D/C: 12/26/16 - Smoking Cessation Smoking Cessation Initiated: No
[2016-12-26 07:29] VITALS: RESP 18
[2016-12-26 08:33] LABS: BASO # 0.1 K/uL (0.0-0.2); BASO % 1.1 % (0.0-2.0); EOS # 0.2 K/uL (0.0-0.7); HEMATOCRIT 42.6 % (35.0-51.0); LYMPH # 1.6 K/uL (1.0-4.3); LYMPH % 30.4 % (20.0-40.0); MEAN CELL VOLUME 99.3 fL (80.0-94.0); MEAN CORPUSCULAR HEMOGLOBIN 34.7 pg (27.0-31.0); MEAN PLATELET VOLUME 7.4 fL (7.2-11.7); MONO # 0.7 K/uL (0.0-0.8); MONO % 13.5 % (0.0-10.0); NRBC % 0.2 % (0.0-2.0); RED CELL DISTRIBUTION WIDTH 13.8 % (11.5-14.5); WHITE BLOOD COUNT 5.4 K/uL (4.8-10.8)
[2016-12-26] MEDS: Multiple Vitamins Tab PO SCH (09:38)
--- NOTE | 2016-12-26 13:53 | PCM.PYCHPN ---
Psychiatric Progress Note - Psychiatric Progress Note Patient seen today, length of contact: 18 min Patient Chief Complaint: "I am doing okay today" Problems Identified/Issues Discussed: The pt is seen, chart reviewed, case discussed with staff. Support given, CBT and [place] used briefly No new symptoms reported, improving slowly and needs more time No SEs from medications, risks discussed. After care IOP discussed still very interested in letter for joann. asks for strong sleeping pill. Medication Change: No Medical Record Reviewed: Yes Mental Status Examination - Cognitive Function Orientation: Person, Place, Situation, Time Memory: Intact Attention: WNL Concentration: WNL Association: WNL Fund of Knowledge: WN - Mood Mood: Depressed, Anxious - Affect Affect: Constricted - Speech Speech: Appropriate - Formal Thought Process Formal Thought Process: No Impairment Psychotic Thoughts and Behaviors: denies/denies - Suicidal Ideation Suicidal Ideation: No - Homicidal Ideation Homicidal Ideation: No Goal/Treatment Plan - Goal/Treatment Plan Need for Continued Stay: Remain at risks for inpatient hospitalization, Discharge may exacerbated symptoms, Severe functional impairment Progress Toward Problem(s) and Goals/Treatment Plan: Continue medications at current doses Gabapentin for augmentation, check Liver function tests. Attend groups and activities Supportive therapy and psychoeducation [place] for abstinence CBT for relapse prevention Encourage MAT Refer to IOP at [facility] Estimated Date of D/C: 12/28/16 If changed, why: requires more time
[2016-12-27] MEDS: Multiple Vitamins Tab PO SCH (10:00)
--- NOTE | 2016-12-27 14:16 | PCM.PYCHPN ---
Psychiatric Progress Note - Psychiatric Progress Note Patient seen today, length of contact: 16 min Patient Chief Complaint: "I didn't sleep well " Problems Identified/Issues Discussed: The pt is seen, chart reviewed, case discussed with staff. The pt is compliant with medications and reports some nausea effecting his sleep Symptoms are improving but needs more time to stabilize. After care discussed, support and psychoeducation given. still inquires about the letter for landlord Medication Change: No Medical Record Reviewed: Yes Mental Status Examination - Cognitive Function Orientation: Person, Place, Situation, Time Memory: Intact Attention: WNL Concentration: WNL Association: WNL Fund of Knowledge: WN - Mood Mood: Depressed, Anxious - Affect Affect: Constricted - Speech Speech: Appropriate - Formal Thought Process Formal Thought Process: No Impairment Psychotic Thoughts and Behaviors: denies - Suicidal Ideation Suicidal Ideation: No - Homicidal Ideation Homicidal Ideation: No Goal/Treatment Plan - Goal/Treatment Plan Need for Continued Stay: Remain at risks for inpatient hospitalization, Discharge may exacerbated symptoms, Severe functional impairment Progress Toward Problem(s) and Goals/Treatment Plan: Continue medications at current doses Support and psychoeducation daily Attend groups and activities daily Encourage MAT After care planning by [place] at [facility] Estimated Date of D/C: 12/28/16
[2016-12-28 07:24] VITALS: BP 133/75; PULSE 65; TEMP 97.9
--- NOTE | 2016-12-28 08:59 | PCM.PYCHDC ---
Mental Status Examination - Mental Status Examination Orientation: Person, Place, Situation, Time Memory: Intact Mood: Neutral Affect: Broad Speech: Appropriate Attention: WNL Concentration: WNL Association: WNL Fund of Knowledge: WNL Formal Thought Process: No Impairment Description of patient's judgement and insight: WNL Psychotic Thoughts and Behaviors: denies Suicidal Ideation: No Current Homicidal Ideation?: No Discharge Summary - Discharge Note Reason for Hospitalization: The pt is seen, chart reviewed and case discussed He is a 41 y/o male presented to the ED 12/18/16 requesting alcohol detox. He denies a PMH other than alcohol use disorder. He denies the use of drugs and tobacco. Patient reported depression as well interested in rehab as well as psych followup at [facility]. Psychiatric History (includes Medical, Family, Personal Hx): detox Consultations:: List each consultation separately and include: 1. Reason for request. 2. Findings. 3. Follow-up Summary of Hospital Course include:: 1. Description of specific treatment plan utilized for patients during their course of treatmen. 2. Summarize the time- course for resolution of acute symptoms and/or regressed behaviors. 3. Describe issues identified and worked on during hospitalization. 4. Describe medication utilized. 5. Describe medical problems identified and treated. 6. Reassessment of suicide risk Summary of Hospital Course: The pt was admitted and started on treatment with psychotherapy, support, psychoeducation and medications. GA and CBT used. The pt attended groups and activities, as well as milieu therapy. All the risks and benefits of medications are discussed and the patient understood and agreed. The pt improved with the treatments provided. After care discussed with the patient. - Diagnosis (1) Alcohol use disorder, severe, dependence Status: Acute (2) Depression Status: Acute - Final Diagnosis (DSM 5) Condition upon Discharge: STABLE Disposition: HOME/ ROUTINE Follow-up Treatment Plan: Patient will follow up with alcoholics anonymous. He also conveyed to us he was interested in inpatient rehab this time. Continue below medications after discharge. Follow after care plan as discussed. Use relapse prevention skills Return to ER or call 911 if suicidal, homicidal or symptoms relapse. Stay away from stress, alcohol and drugs. See primary doctor regularly and get labs. Prescriptions/Medication Reconciliation: Gabapentin [Neurontin] 300 mg PO BID #60 cap Sertraline [Zoloft] 100 mg PO DAILY #30 tab - Smoking Cessation Smoking Cessation Medication prescribed: No - Antipsychotic Medications Pt discharged on 2 or more routine antipsychotic medications: No
[2016-12-28] MEDS: Multiple Vitamins Tab PO SCH (09:38)
== END 2016-12-28 14:04 | disposition home or self-care (01) | DRG 895 ==
LOC: C.ER 16:12 → C.9E 18:55 → C.6T 19:34 → C.5S 12-20 07:01 → C.6T 12-20 13:00 → C.5E 12-21 13:27
PROVIDERS: ADMIT Psychiatry & Neurology Psychiatry; ATTEND Psychiatry & Neurology Psychiatry
PROC: HZ2ZZZZ Detoxification Services for Substance Abuse Treatment (ICD-10-PCS; principal; 2016-12-18)
PROC: HZ59ZZZ Individual Psychotherapy for Substance Abuse Treatment, Supportive (ICD-10-PCS; 2016-12-18)
PROC: HZ46ZZZ Group Counseling for Substance Abuse Treatment, Psychoeducation (ICD-10-PCS; 2016-12-18)
PROC: GZ3ZZZZ Medication Management (ICD-10-PCS; 2016-12-18)
PROC: GZ56ZZZ Individual Psychotherapy, Supportive (ICD-10-PCS; 2016-12-18)
DX: F10.231 Alcohol dependence with withdrawal delirium (principal); F33.3 Major depressive disorder, recurrent, severe with psychotic symptoms; E88.89 Other specified metabolic disorders; F41.9 Anxiety disorder, unspecified; I10 Essential (primary) hypertension; Z87.891 Personal history of nicotine dependence

== ENCOUNTER 2017-02-27 16:06 | Inpatient (IN) | payer SELFPAY ==
[2017-02-27 16:37] VITALS: BMI 25.8
[2017-02-27] MEDS ORDERED: Pantoprazole 20 mg EC Tab PO STA (18:39)
--- NOTE | 2017-02-27 18:55 | C.PDOC ---
History Of Present Illness 41 year old male presents to ED requesting alcohol detox. Pt states he drinks 6- 12 beers everyday, and has been binge drinking for the past 7 days. Pt reports vomiting today. Denies abdominal pain, diarrhea, fever, urinary symptoms, or any other complaints at this time. Time Seen by Provider: 02/27/17 18:27 Chief Complaint (Nursing): Psychiatric Evaluation History Per: Patient History/Exam Limitations: no limitations Onset/Duration Of Symptoms: Days Current Symptoms Are (Timing): Still Present Suicide/Self Injury Attempted (Context): None Modifying Factor(s): Alcohol Severity: None Pain Scale Rating Of: 0 Associated Symptoms: denies: Suicidal Thoughts, Suicidal Plan Involuntary Hold By: None Recent travel outside of the [place]: No Additional History Per: Patient Past Medical History Reviewed: Historical Data, Nursing Documentation, Vital Signs Vital Signs: Last Vital Signs Temp 97.5 F L 02/27/17 23:47 Pulse 105 H 02/27/17 23:47 Resp 45 H 02/27/17 23:47 BP 148/94 H 02/27/17 23:47 Pulse Ox 100 02/27/17 23:47 - Medical History PMH: Depression, HTN Denies: Diabetes, Hepatitis, HIV, Chronic Kidney Disease, Seizures, Sexually Transmitted Disease - [facility] Procedures DETOXIFICATION SERVICES FOR SUBSTANCE ABUSE TREATMENT (12/18/16) GROUP ADVANCED PRACTICE NURSE FOR SUBSTANCE ABUSE TREATMENT, PSYCHOEDUCATION (12/18/16) INDIV PSYCHOTHERAPY FOR SUBSTANCE ABUSE TREATMENT, SUPPORT (12/18/16) INDIVIDUAL PSYCHOTHERAPY, SUPPORTIVE (12/18/16) MEDICATION MANAGEMENT (12/18/16) Family History: States: Unknown Family Hx - Social History Hx Tobacco Use: Yes Hx Alcohol Use: Yes (Daily) Hx Substance Use: No - Immunization History Hx Tetanus Toxoid Vaccination: No Hx Influenza Vaccination: No Hx Pneumococcal Vaccination: No Review Of Systems Except As Marked, All Systems Reviewed And Found Negative. Constitutional: Negative for: Fever, Chills Cardiovascular: Negative for: Chest Pain, Palpitations Respiratory: Negative for: Cough, Shortness of Breath Gastrointestinal: Positive for: Vomiting. Negative for: Abdominal Pain, Diarrhea, Constipation Genitourinary: Negative for: Dysuria, Frequency, Hematuria Musculoskeletal: Negative for: Back Pain Neurological: Negative for: Headache, Dizziness Psych: Negative for: Suicidal ideation Physical Exam - Physical Exam Appears: Non-toxic, No Acute Distress, Other (EtOH on breath) Skin: Normal Color, Warm, Dry Head: Atraumatic, Normacephalic Eye(s): bilateral: Normal Inspection Oral Mucosa: Moist Neck: Normal ROM, Supple Chest: Symmetrical Cardiovascular: Rhythm Regular Respiratory: Normal Breath Sounds, No Rales, No Rhonchi, No Wheezing Gastrointestinal/Abdominal: Soft, No Tenderness Back: No CVA Tenderness Extremity: Normal ROM, No Pedal Edema Neurological/Psych: Oriented x3, Normal Speech ED Course And Treatment - Laboratory Results Result Diagrams: 02/27/17 19:11 02/27/17 19:11 O2 Sat by Pulse Oximetry: 99 (RA) Pulse Ox Interpretation: Normal Medical Decision Making Medical Decision Making: Blood work, UA ordered and reviewed. Pt was given Zofran and Protonix. Maalox and Sucralfate given considering pt's ? h/o gastric ulcers. 0030: eval by Crisis- pending Admission 0100: signed over to night MD, pending Admission by Crisis Workers. Disposition - Disposition Disposition Time: 01:00 Condition: GOOD Forms: [facility] (Hebrew) - Clinical Impression Clinical Impression: Alcohol abuse - Scribe Statement The provider has reviewed the documentation as recorded by the Scribe Hero Coleman All medical record entries made by the Scribe were at my direction and personally dictated by me. I have reviewed the chart and agree that the record accurately reflects my personal performance of the history, physical exam, medical decision making, and the department course for this patient. I have also personally directed, reviewed, and agree with the discharge instructions and disposition. Physician Patient Turnover Patient Signed Over To: David Tinajero Handoff Comments: pending Crisis eval and Detox Adm
[2017-02-27 19:19] LABS: BASO % 0.6 % (0.0-2.0); EOS % 0.3 % (0.0-4.0); HEMOGLOBIN 15.7 g/dL (12.0-18.0); LYMPH # 1.6 K/uL (1.0-4.3); LYMPH % 37.4 % (20.0-40.0); MEAN CORPUSCULAR HEMOGLOBIN 34.2 pg (27.0-31.0); MEAN CORPUSCULAR HGB CONC 35.6 g/dL (33.0-37.0); MEAN PLATELET VOLUME 7.1 fL (7.2-11.7); MONO # 0.3 K/uL (0.0-0.8); MONO % 5.9 % (0.0-10.0); NEUT # 2.4 K/uL (1.8-7.0); NEUT % 55.8 % (50.0-75.0); NRBC % 0.1 % (0.0-2.0); RBC 4.58 Mil/uL (4.40-5.90); RED CELL DISTRIBUTION WIDTH 13.4 % (11.5-14.5); WHITE BLOOD COUNT 4.2 K/uL (4.8-10.8)
[2017-02-27 19:32] LABS: BLOOD UREA NITROGEN 10 mg/dL (9-20); GFR AFRICAN-AMERICAN > 60; GFR NON-AFRICAN AMERICAN > 60
[2017-02-27 19:33] LABS: ALB/GLOB RATIO 1.2 (1.0-2.1); ALBUMIN 4.5 g/dL (3.5-5.0); ALT/SGPT 45 U/L (21-72); AST/SGOT 62 U/L (17-59); CALCIUM 8.2 mg/dl (8.6-10.4)
[2017-02-27 20:56] LABS: BARBITURATES, UR NEGATIVE (NEGATIVE); BENZODIAZEPINES, UR NEGATIVE (NEGATIVE); OPIATES, UR NEGATIVE (NEGATIVE); PHENCYCLIDINE, UR NEGATIVE (NEGATIVE)
[2017-02-27 21:10] LABS: URINE BACTERIA RARE (<OCC); URINE BILIRUBIN NEGATIVE (NEGATIVE); URINE BLOOD 1+ (NEGATIVE); URINE CLARITY Clear (Clear); URINE COLOR Straw (YELLOW); URINE GLUCOSE (UA) NORMAL (Normal); URINE LEUKOCYTE ESTERASE NEG Leu/uL (Negative); URINE NITRATE NEGATIVE (NEGATIVE); URINE PROTEIN NEGATIVE (NEGATIVE); URINE UROBILINOGEN NORMAL mg/dL (0.2-1.0)
[2017-02-28] MEDS ORDERED: Alum-Mag Hydrox-Simethicone Susp (30 mL) PO STA (00:43)
[2017-02-28] MEDS ORDERED: Sucralfate 1 gm/10 ml Oral Susp UD PO STA (00:43)
[2017-02-28] MEDS ORDERED: Sucralfate 1 gm/10 ml Oral Susp UD ONE (00:49)
[2017-02-28] MEDS ORDERED: Aluminum Hydroxide/Magnesium Hydroxide Susp (30 mL) ONE (00:50)
--- NOTE | 2017-02-28 05:21 | PCM.BM ---
<Emelyn Cabezas George - Last Filed: 02/28/17 05:19> Treatment Plan Problems - Problems identified on initial assessmt Alcohol Dependence Date Initiated: 02/28/17 Time Initiated: 04:00 Assessment reference: NA Status: Active Treatment assets and liabiliti Patient Assests: cooperative, insightful, ADL independent Patient Liabilities: substance abuse - Milieu Protocol Maintain good personal hygiene: daily Encourage regular showers, daily Remind patient to perform daily oral care, daily Assist patient to perform ADL's Maintain personal safety: every shift Educate patient to report safety concerns to staff, every shift Monitor environment for contraband/sharps Medication safety: Monitor for expected outcome, potential side effects: every shift, Assess barriers to learning: every shift, Assess readiness for medication education: every shift <Sonam Kelley - Last Filed: 02/28/17 14:02> Family Contact Family involvement: Famliy/SO not involved Family contact: Patient declines to allow family contact at present - Goals for Treatment Patient goals for treatment: COMPLETE DETOX AND FOLLOW-UP WITH A PSYCHIATRIST. Discharge/Continuing Care - Education Needs Education Needs: Patient Medication, Patient Diagnosis/Disease Process, Patient Coping Skills, Patient Anger Management skills, Patient Placement options, Patient Community resources - Discharge Discharge Criteria: Ability to care for self, No longer exhibiting s/s of withdrawal, Reduction of target symptoms Discharge to:: Other - Additional Comments 02/28/17 14:02 MENTAL HEALTH CARE MONITORING BY A PSYCHIATRIST - Treatment Team Participation Patient/Family/SO Statement: 02/28/17 14:03 "I NEED TO HAVE A PSYCHIATRIST STRAIGHTEN OUT MY MEDICINE SITUATION AND HELP MY DEPRESSION." Discussed with Family/SO: No Was Patient/Family/SO present at Treatment Team Meeting: Yes <Kelly Chacon - Last Filed: 03/01/17 15:28> - Diagnosis (1) Alcohol abuse Status: Acute Interventions: Detox treatment Psychoeducation regarding deleterious side effects of alcohol 03/01/17 15:25 (2) Alcohol use disorder, severe, dependence Status: Acute Interventions: Librium protocol Psychoeducation regarding alcohol effects on physical and mental health MAT, CBT 03/01/17 15:26 (3) Major depressive disorder, recurrent severe without psychotic features Status: Acute Interventions: MEDICATION MANAGEMENT CBT INDIVIDUAL AND GROUP THERAPY 03/01/17 15:28
--- NOTE | 2017-02-28 12:12 | PCM.PSYCH ---
Initial Psychiatric Evaluation - Initial Psychiatric Evaluation Type of Admission: Voluntary Legal Status: Capacity Chief Complaint (in patient's own words): "I'm feeling bad" Patient's Reaction to Hospitalization: Patient stated he is feeling safe in the hospital History of Present Illness and Precipitating Events: This is a 41-year-old male with a possible psychiatric history of depression and alcohol dependence admitted to the 7 detox unit for alcohol detox treatment. Patient's initial BAL was 324. Patient was discharged from the 7 detox unit 3 months ago. Patient stated that he is feeling depressed and he had relapsed 3 weeks ago. CAGE questionnaire was positive. He reported that he was drinking hard liquor including beer. Patient currently reported abdominal pain, tremors in the hand, nausea hard" sweats. Currently patient denied any visual hallucinations, or auditory hallucinations. In the past he had auditory hallucinations secondary to alcohol withdrawal symptoms. Patient reported major depressive symptoms are depressive disorder symptoms including depressed mood, with on-and-off suicidal ideation but no intent or plan for the last few days. Patient stated that he never attempted suicide because he have for children's and he does not want to hurt his family. Patient also reported that his cheated on him. He reported that he is drinking alcohol to make himself calm down. Patient reported after the discharge from the hospital he was not compliant with the Zoloft and Neurontin. Patient denied manic symptoms, PTSD symptoms. Patient denied any past suicide attempt. Patient stated that he is meeting with his children. She has a good social support. Current Medications: Active Medications Generic Name Dose Route Start Last Admin Trade Name Freq PRN Reason Stop Dose Admin Chlordiazepoxide 25 mg 02/28/17 03:45 02/28/17 04:12 Librium PO 25 mg Q4H PRN Administration Alcohol Withdrawal Chlordiazepoxide 25 mg 02/28/17 12:10 Librium PO 03/05/17 05:59 Q6 SUKHI Taper Clonidine HCl 0.1 mg 02/28/17 03:45 02/28/17 04:12 Catapres PO 0.1 mg Q4H PRN Administration Symptoms of alcohol withdrawl Past Psychiatric History - Past Psychiatric History Previous Treatment History: Inpatient Prior Psychiatric Treatment: September 2016 he was admitted to detox unit, December 2016 he was admitted to At [facility]: [facility] Nature of Treatment: Detox and medication management History of Abuse: Denied History of Family Illness: Denied Pertinent Medical Hx (Current Medical&Sleep Prob, Allergies): Allergies Allergy/AdvReac Type Severity Reaction Status Date / Time No Known Allergies Allergy Verified 02/27/17 16:36 No Known Home Med 02/27/17 Denied any medical history ASTHMA high blood pressure or diabetes mellitus. Patient stated he had high cholesterol level Review of Systems - Review of Systems Systems not reviewed;Unavailable: Intoxicated All systems: reviewed and no additional remarkable complaints except - Constitutional Constitutional: Chills, Sweats, Malaise - EENT Eyes: Other (Eyes were congested) Ears: UNREMARKABLE Nose/Mouth/Throat: Nasal Congestion - Cardiovascular Cardiovascular: Other (Heart racing) - Respiratory Respiratory: UNREMARKABLE - Gastrointestinal Gastrointestinal: Abdominal Pain, Cramping - Genitourinary Genitourinary: UNREMARKABLE - Reproductive: Male Reproductive:Male: UNREMARKABLE - Musculoskeletal Musculoskeletal: Myalgias - Integumentary Integumentary: UNREMARKABLE - Neurological Neurological: UNREMARKABLE - Psychiatric Psychiatric: As Per [facility] Mental Status Examination - Personal Presentation Personal Presentation: Looks stated age, Dressed appropriate to season Additional comments: Patient appeared tremulous, sweating was positive - Affect Affect: Constricted, Depressed - Motor Activity Motor Activity: Psychomotor Agitation - Reliability in Providing Information Reliability in Providing Information: Fair - Speech Speech: Organized - Mood Mood: Depressed, Anxious - Formal Thought Process Formal Thought Process: Other (Denied) - Hallucinations/Delusions Delusions: Other (Denied) - Obsessions/Compulsions Obsessions: No Compulsions: No Description of Obsession/Compulsion: Denied - Cognitive Functions Orientation: Person, Place, Situation, Time Sensorium: Alert Abstract Thinking: [place] Judgement: Intact, as evidence by: Good judgement, Intact, as evidence by: Insight regarding need for hospitalization Memory: Recent intact, as evidence by: Ability to recall events of the day - Risk Risk: Other (Positive passive suicidal ideation, denied any intent or plan, no past suicide attempt, no access to the guns or firearms) - Strength & Assets Inventory Strength & Assets Inventory: Intelligence, Employment history, Interests/hobbies , Cooperative - Limitations Limitations: Other (chronic alcohol use) DSM 5 DX - DSM 5 DSM 5 Diagnosis: Alcohol dependence, severe with withdrawal symptoms Major depressive disorder recurrent, severe - Recommended/Plan of Treatment Treatment Recommendations and Plan of Treatment: Librium detox Gabapentin for augmentation We will to start Zoloft for depression We will monitor pt's vitals. Transfer the patient to E. after completion of detox treatment As needed meds and vitamins Attend groups and activities PA for abstinence and CBT for relapse prevention Support and psychoeducation Consider and encourage MAT Refer to after care 33 min Projected ELOS: 5-7 days Prognosis: Good with the treatment and compliance Discharge Plan and Discharge Criteria: Recommend inpatient rehabilitation afford alcohol abuse - Smoking Cessation Smoking Cessation Initiated: Yes
[2017-02-28] MEDS: Multiple Vitamins Tab PO SCH (12:35)
[2017-03-01] MEDS: Multiple Vitamins Tab PO SCH (10:41)
--- NOTE | 2017-03-01 15:33 | PCM.PYCHPN ---
Psychiatric Progress Note - Psychiatric Progress Note Patient seen today, length of contact: 15 MINUTES Patient Chief Complaint: "My shakes are little better" Problems Identified/Issues Discussed: The pt is seen and evaluated. Chart reviewed, case discussed with staff. Patient stated that he is feeling a little better than yesterday. He still has had alcohol withdrawal symptoms as well as depressive symptoms. The pt is compliant with medications and reports no side-effects. Symptoms are improving but needs more time to stabilize. Her gait patient denied any suicidal ideation intent or plan. After care discussed, support and psychoeducation given. DSM 5 Symptoms Update: Alcohol use disorder, severe, dependence, withdrawal symptoms Major depressive disorder, recurrent, severe Medication Change: Yes (Librium protocol) Medical Record Reviewed: Yes Consults ordered or reviewed: None Mental Status Examination - Cognitive Function Orientation: Person, Place, Situation, Time Memory: Intact Attention: WNL Concentration: Poor Association: WNL Fund of Knowledge: Poor Decription of patient's judgement and insights: Limited/limited - Mood Mood: Depressed, Anxious - Affect Affect: Constricted, Depressed - Speech Speech: Appropriate - Formal Thought Process Formal Thought Process: No Impairment, Other (Denied) Psychotic Thoughts and Behaviors: Denied - Suicidal Ideation Suicidal Ideation: No Plan: Denied - Homicidal Ideation Homicidal Ideation: No Plan: Denied Goal/Treatment Plan - Goal/Treatment Plan Need for Continued Stay: Severe depression anxiety, Discharge may exacerbated symptoms, Severe functional impairment Progress Toward Problem(s) and Goals/Treatment Plan: Continue Librium detox Start Zoloft 50 mg orally daily for depression. Gabapentin for augmentation We will monitor pt's vitals. Transfer the patient to [facility]. after completion of detox treatment As needed meds and vitamins Attend groups and activities [place] for abstinence and CBT for relapse prevention Support and psychoeducation Consider and encourage MAT Refer to after care Estimated Date of D/C: 03/04/17 - Smoking Cessation Smoking Cessation Initiated: Yes
[2017-03-02] MEDS: Multiple Vitamins Tab PO SCH (10:37)
--- NOTE | 2017-03-02 13:28 | PCM.PYCHPN ---
Psychiatric Progress Note - Psychiatric Progress Note Patient seen today, length of contact: 15 MINUTES Patient Chief Complaint: "I'm better" Problems Identified/Issues Discussed: The pt is seen and evaluated. Chart reviewed, case discussed with staff. Patient stated that he is feeling better than yesterday. He still has had alcohol withdrawal symptoms as well as depressive symptoms. This pt reported improvement in his SI, Hi, intent or plan. He reported improvement in his sleep add appetite. The pt is compliant with medications and reports no side-effects. Symptoms are improving but needs more time to stabilize. After care discussed, support and psychoeducation given. DSM 5 Symptoms Update: Alcohol use disorder, severe, dependence, withdrawal symptoms Major depressive disorder, recurrent, severe Medication Change: Yes (Librium protocol) Medical Record Reviewed: Yes Mental Status Examination - Cognitive Function Orientation: Person, Place, Situation, Time Memory: Intact Attention: WNL Concentration: Poor Association: WNL Fund of Knowledge: Poor Decription of patient's judgement and insights: fair/fair - Mood Mood: Depressed, Anxious - Affect Affect: Constricted, Depressed - Speech Speech: Appropriate - Formal Thought Process Formal Thought Process: No Impairment, Other (Denied) Psychotic Thoughts and Behaviors: Denied - Suicidal Ideation Suicidal Ideation: No Plan: denied - Homicidal Ideation Homicidal Ideation: No Plan: denied Goal/Treatment Plan - Goal/Treatment Plan Need for Continued Stay: Severe depression anxiety, Discharge may exacerbated symptoms, Severe functional impairment Progress Toward Problem(s) and Goals/Treatment Plan: Continue Librium detox Zoloft 50 mg orally daily for depression. Gabapentin for augmentation We will monitor pt's vitals. As needed meds and vitamins Attend groups and activities [place] for abstinence and CBT for relapse prevention provided Support and psychoeducation Encourage to attend groups meetings Estimated Date of D/C: 03/04/17 - Smoking Cessation Smoking Cessation Initiated: Yes
[2017-03-02] MEDS ORDERED: Aluminum Hydroxide/Magnesium Hydroxide Susp (30 mL) PO PRN (15:47)
[2017-03-03] MEDS: Multiple Vitamins Tab PO SCH (09:59)
[2017-03-03] MEDS ORDERED: Influenza Vaccine 60 mcg/0.5 mL SYR (4YR UP) IM ONE (10:30)
[2017-03-03] MEDS: Benzocaine/Menthol (Cepacol) Lozenge MT PRN ×2 (19:25→23:44)
[2017-03-04] MEDS: Multiple Vitamins Tab PO SCH (10:32)
[2017-03-04] MEDS: Benzocaine/Menthol (Cepacol) Lozenge MT PRN (18:04)
[2017-03-05] MEDS: Benzocaine/Menthol (Cepacol) Lozenge MT PRN ×2 (00:59→11:57)
--- NOTE | 2017-03-05 09:57 | PCM.PYCHPN ---
Psychiatric Progress Note - Psychiatric Progress Note Patient seen today, length of contact: 15 MINUTES Patient Chief Complaint: I'M NOT SO WELL I CAN'T BREATHE I NEED A Z-PACK I FEEL LIKE I'M DRUNK Problems Identified/Issues Discussed: HOW HE HAS REMAINED SOBER IN THE PAST, AFTERCARE OPTIONS Medical Problems: URI Diagnostic Results: REVIEWED DSM 5 Symptoms Update: TREMORS ANHEDONIA ANERGY SAD Medication Change: Yes (Librium protocol) Medical Record Reviewed: Yes Mental Status Examination - Cognitive Function Orientation: Person, Place, Situation, Time Memory: Intact Attention: WNL Concentration: Poor Association: WNL - Mood Mood: Depressed, Anxious - Affect Affect: Constricted, Depressed - Speech Speech: Appropriate - Formal Thought Process Formal Thought Process: No Impairment, Other (Denied) - Suicidal Ideation Suicidal Ideation: No - Homicidal Ideation Homicidal Ideation: No Goal/Treatment Plan - Goal/Treatment Plan Need for Continued Stay: Severe depression anxiety, Discharge may exacerbated symptoms, Severe functional impairment Progress Toward Problem(s) and Goals/Treatment Plan: ALCOHOL USE DISORDER GROUP MILIEU AND RECREATIONAL THERAPY CBT [place] SUPPORTIVE PSYCHOTHERAPY ALCOHOL WITHDRAWAL LIBRIUM TAPER MAJOR DEPRESSIVE DISORDER ANGEL Estimated Date of D/C: 03/04/17 - Smoking Cessation Smoking Cessation Initiated: Yes
--- NOTE | 2017-03-05 10:04 | PCM.PYCHPN ---
Psychiatric Progress Note - Psychiatric Progress Note Patient seen today, length of contact: 15 MINUTES Patient Chief Complaint: I am hearing voices.' Problems Identified/Issues Discussed: Patient seen and evaluated, chart reviewed and discussed with the nurse. Patient still reports withdrawal symptoms including anxiety, headaches, and sweating. He reports irritable mood and still reports depressed mood. He is still reporting AH non command type. Patient remained isolated, confined and withdrawn. He is taking medication and denies any side effects. He needs more time for stabilization. Supportive therapy and psychoeducation were given. Medication Change: Yes (Librium protocol) Medical Record Reviewed: Yes Mental Status Examination - Cognitive Function Orientation: Person, Place, Situation, Time Memory: Intact Attention: WNL Concentration: Poor Association: WNL - Mood Mood: Depressed, Anxious - Affect Affect: Constricted, Depressed - Speech Speech: Appropriate - Formal Thought Process Formal Thought Process: Hallucinations, Other (Denied) - Suicidal Ideation Suicidal Ideation: No - Homicidal Ideation Homicidal Ideation: No Goal/Treatment Plan - Goal/Treatment Plan Need for Continued Stay: Severe depression anxiety, Discharge may exacerbated symptoms, Severe functional impairment Progress Toward Problem(s) and Goals/Treatment Plan: Alcohol dependence, severe with withdrawal symptoms Major depressive disorder recurrent, severe with psychotic features Librium detox Gabapentin for augmentation Zoloft for depression monitor pt's vitals. Transfer the patient to [facility]. after completion of detox treatment As needed meds and vitamins Attend groups and activities [place] for abstinence and CBT for relapse prevention Support and psychoeducation Consider and encourage MAT Refer to after care Estimated Date of D/C: 03/06/17 - Smoking Cessation Smoking Cessation Initiated: No
--- NOTE | 2017-03-05 10:05 | PCM.PYCHPN ---
Psychiatric Progress Note - Psychiatric Progress Note Patient seen today, length of contact: 15 MINUTES Patient Chief Complaint: I'M NOT SO WELL I CAN'T BREATHE I NEED A Z-PACK I FEEL LIKE I'M DRUNK Problems Identified/Issues Discussed: POST ACUTE WITHDRAWAL SYNDROME AFTERCARE OPTIONS IN PATIENT REHAB OUT PATIENT REHAB AA MEETINGS SYMPTOMS OF DEPRESSION Medical Problems: NOYHING ACUTE Diagnostic Results: REVIEWED DSM 5 Symptoms Update: ANHEDONIA ANERGY TREMORS Medication Change: Yes (Librium protocol) Medical Record Reviewed: Yes Mental Status Examination - Cognitive Function Orientation: Person, Place, Situation, Time Memory: Intact Attention: WNL Concentration: Poor Association: WNL Fund of Knowledge: Poor - Mood Mood: Depressed, Anxious - Affect Affect: Constricted, Depressed - Speech Speech: Appropriate - Formal Thought Process Formal Thought Process: No Impairment, Other (Denied) - Suicidal Ideation Suicidal Ideation: No - Homicidal Ideation Homicidal Ideation: No Goal/Treatment Plan - Goal/Treatment Plan Need for Continued Stay: Severe depression anxiety, Discharge may exacerbated symptoms, Severe functional impairment Progress Toward Problem(s) and Goals/Treatment Plan: ALCOHOL USE DISORDER GROUP MILIEU AND RECREATIONAL THERAPY CBT [place] SUPPORTIVE PSYCHOTHERAPY ALCOHOL WITHDRAWAL LIBRIUM TAPER MAJOR DEPRESSIVE DISORDER ANGEL Estimated Date of D/C: 03/04/17 - Smoking Cessation Smoking Cessation Initiated: Yes
[2017-03-05] MEDS: Multiple Vitamins Tab PO SCH (10:21)
[2017-03-06] MEDS ORDERED: Influenza Vaccine 60 mcg/0.5 mL SYR (4YR UP) IM ONE (09:00)
[2017-03-06] MEDS ORDERED: Pneumococcal 23-Valent Vaccine IM ONE (09:00)
[2017-03-06] MEDS: Multiple Vitamins Tab PO SCH (09:13)
[2017-03-06] MEDS: Benzocaine/Menthol (Cepacol) Lozenge MT PRN (10:23)
[2017-03-06 11:17] VITALS: RESP 20; TEMP 97.6
--- NOTE | 2017-03-06 13:08 | PCM.PYCHDC ---
Mental Status Examination - Mental Status Examination Orientation: Person, Place, Situation, Time Memory: Intact Mood: Neutral Affect: Depressed Speech: Appropriate Attention: WNL Concentration: WNL Formal Thought Process: No Impairment Suicidal Ideation: No Current Homicidal Ideation?: No Discharge Summary - Discharge Note Reason for Hospitalization: alcohol detox Psychiatric History (includes Medical, Family, Personal Hx): Detox and medication management Laboratory Data: Alcohol quant 324 Consultations:: List each consultation separately and include: 1. Reason for request. 2. Findings. 3. Follow-up Summary of Hospital Course include:: 1. Description of specific treatment plan utilized for patients during their course of treatmen. 2. Summarize the time- course for resolution of acute symptoms and/or regressed behaviors. 3. Describe issues identified and worked on during hospitalization. 4. Describe medication utilized. 5. Describe medical problems identified and treated. 6. Reassessment of suicide risk Summary of Hospital Course: HPI: Patient is a 41-year-old male with a possible psychiatric history of depression and alcohol dependence admitted to the 7 detox unit for alcohol detox treatment. Patient's initial BAL was 324. Patient was discharged from the 7 detox unit 3 months ago. Patient stated that he is feeling depressed and he had relapsed 3 weeks ago. CAGE questionnaire was positive. He reported that he was drinking hard liquor including beer. Patient currently reported abdominal pain, tremors in the hand, nausea hard" sweats. Currently patient denied any visual hallucinations, or auditory hallucinations. In the past he had auditory hallucinations secondary to alcohol withdrawal symptoms. Patient reported major depressive symptoms are depressive disorder symptoms including depressed mood, with on-and-off suicidal ideation but no intent or plan for the last few days. Patient stated that he never attempted suicide because he have for children's and he does not want to hurt his family. Patient also reported that his cheated on him. He reported that he is drinking alcohol to make himself calm down. Patient reported after the discharge from the hospital he was not compliant with the Zoloft and Neurontin. Patient denied manic symptoms, PTSD symptoms. Patient denied any past suicide attempt. Patient stated that he is meeting with his children. She has a good social support. Hospital Course: The patient was admitted and started on treatment with psychotherapy, support, psychoeducation and medications. All the risks and benefits of medications are discussed and the patient understood and agreed. DC and CBT used. The patient attended groups and activities. The patient improved with the treatments provided. After care discussed with the patient. - Final Diagnosis (DSM 5) Condition upon Discharge: FAIR DSM 5: Alcohol dependence, severe with withdrawal symptoms Major depressive disorder recurrent, severe Disposition: HOME/ ROUTINE Follow-up Treatment Plan: Continue below medications after discharge. Follow after care plan as discussed. Encouraged outpatient follow up, and to continue going to AA/NA. Use relapse prevention skills. Return to ER or call 911 if suicidal, homicidal or symptoms relapse. Stay away from stress, alcohol and drugs. Follow up with primary doctor regularly and get labs. Prescriptions/Medication Reconciliation: Gabapentin [Neurontin] 300 mg PO BID #60 cap Sertraline [Zoloft] 50 mg PO DAILY #30 tab traZODone [Desyrel] 50 mg PO HS PRN #30 tab PRN Reason: Insomnia - Smoking Cessation Smoking Cessation Medication prescribed: No - Antipsychotic Medications Pt discharged on 2 or more routine antipsychotic medications: No
[2017-03-06 13:18] VITALS: BP 138/91; PULSE 73; O2SAT 100
== END 2017-03-06 13:40 | disposition home or self-care (01) | DRG 895 ==
LOC: C.ER 16:06 → C.7D 02-28 02:34
PROC: HZ2ZZZZ Detoxification Services for Substance Abuse Treatment (ICD-10-PCS; principal; 2017-02-28)
PROC: HZ59ZZZ Individual Psychotherapy for Substance Abuse Treatment, Supportive (ICD-10-PCS; 2017-02-28)
PROC: HZ46ZZZ Group Counseling for Substance Abuse Treatment, Psychoeducation (ICD-10-PCS; 2017-02-28)
PROC: GZ3ZZZZ Medication Management (ICD-10-PCS; 2017-02-28)
DX: F10.230 Alcohol dependence with withdrawal, uncomplicated (principal); F33.2 Major depressive disorder, recurrent severe without psychotic features; F10.220 Alcohol dependence with intoxication, uncomplicated; Y90.8 Blood alcohol level of 240 mg/100 ml or more; J06.9 Acute upper respiratory infection, unspecified

== ENCOUNTER 2017-06-19 13:45 | Emergency (ER) | payer OTHER ==
[2017-06-19 13:45] VITALS: BMI 30.2
[2017-06-19 14:09] VITALS: BP 148/96; PULSE 101; RESP 20; TEMP 98.1; O2SAT 100
[2017-06-19] MEDS ORDERED: Alum-Mag Hydrox-Simethicone Susp (30 mL) PO STA (15:49)
--- NOTE | 2017-06-19 15:51 | C.PDOC ---
History Of Present Illness 41 y/o male presents to ED requesting detox from ETOH and with complaints of occasional tremors and epigastric discomfort. Patient states he drinks 12. 12oz beers daily and reports he drank 5 today. Patient denies history of pancreatitis , etoh seizure withdrawals or any other complaints at this time. Time Seen by Provider: 06/19/17 15:44 Chief Complaint (Nursing): Substance Abuse History Per: Patient History/Exam Limitations: no limitations Onset/Duration Of Symptoms: Days Current Symptoms Are (Timing): Still Present Suicide/Self Injury Attempted (Context): None Modifying Factor(s): Alcohol Past Medical History Reviewed: Historical Data, Nursing Documentation, Vital Signs Vital Signs: Last Vital Signs Temp 98.1 F 06/19/17 14:06 Pulse 101 H 06/19/17 14:06 Resp 20 06/19/17 14:06 BP 148/96 H 06/19/17 14:06 Pulse Ox 100 06/19/17 17:40 - Medical History PMH: Depression, HTN Surgical History: No Surg Hx - [facility] Procedures DETOXIFICATION SERVICES FOR SUBSTANCE ABUSE TREATMENT (02/28/17) GROUP SPIRITUAL ADVISOR FOR SUBSTANCE ABUSE TREATMENT, PSYCHOEDUCATION (02/28/17) INDIV PSYCHOTHERAPY FOR SUBSTANCE ABUSE TREATMENT, SUPPORT (02/28/17) INDIVIDUAL PSYCHOTHERAPY, SUPPORTIVE (12/18/16) MEDICATION MANAGEMENT (02/28/17) Family History: States: No Known Family Hx - Social History Hx Tobacco Use: Yes Hx Alcohol Use: Yes Hx Substance Use: Yes - Immunization History Hx Tetanus Toxoid Vaccination: No Hx Influenza Vaccination: No Hx Pneumococcal Vaccination: No Review Of Systems Constitutional: Negative for: Fever, Chills Cardiovascular: Negative for: Chest Pain Respiratory: Negative for: Shortness of Breath Gastrointestinal: Positive for: Abdominal Pain. Negative for: Nausea, Vomiting Skin: Negative for: Rash Psych: Negative for: Withdrawal Physical Exam - Physical Exam Appears: Non-toxic, No Acute Distress Skin: Warm, Dry, No Rash Head: Atraumatic, Normacephalic, Other (Parotid enlargement) Eye(s): bilateral: Normal Inspection Oral Mucosa: Moist Neck: Normal ROM, Supple Cardiovascular: Rhythm Regular Respiratory: Normal Breath Sounds, No Rales, No Rhonchi, No Wheezing Gastrointestinal/Abdominal: Soft, No Tenderness, No Guarding, No Rebound Back: No CVA Tenderness Neurological/Psych: Oriented x3, Normal Speech, Normal Cognition, Other (Mild tremors) ED Course And Treatment O2 Sat by Pulse Oximetry: 100 (RA) Pulse Ox Interpretation: Normal Medical Decision Making Medical Decision Making: seeking detox drank 5 out of usual 12 of twelve ounce beers daily so far today, mild alcoholic pancreatitis/gastritis could be suspected + minor tremor no detox available per Crisis d/w Crisis many prior detox programs. ok to d/c and opt f/u. Disposition Doctor Will See Patient In The: Office Counseled Patient/Family Regarding: Studies Performed, Diagnosis - Disposition Referrals: Alcoholics Anonymous [Outside] [facility]Outside[facility] Disposition: HOME/ ROUTINE Disposition Time: 15:51 Condition: GOOD Additional Instructions: jo ann de abusar el alcohol maylin puede Pepcid 20 mg en la noche para bajar el acides del estomago- gastritis alcoholico maalox 30 cc (chris cucharada) cada 2-3 horas maylin necessario para las molestias del abdomen- se reduce el acides del estomago. Instructions: Alcohol Use - When Is Drinking a Problem?, Alcohol Withdrawal, Alcohol Abuse and Alcoholism (DC) Forms: [employer] ([place]er) Print Language: DIVEHI - Clinical Impression Clinical Impression: Alcohol dependence - Scribe Statement The provider has reviewed the documentation as recorded by the Scribnessa Veliz All medical record entries made by the Scribe were at my direction and personally dictated by me. I have reviewed the chart and agree that the record accurately reflects my personal performance of the history, physical exam, medical decision making, and the department course for this patient. I have also personally directed, reviewed, and agree with the discharge instructions and disposition.
[2017-06-19] MEDS ORDERED: Aluminum Hydroxide/Magnesium Hydroxide Susp (30 mL) ONE (15:59)
== END 2017-06-19 16:05 | disposition home or self-care (01) ==
LOC: C.ER 13:45
DX: F10.229 Alcohol dependence with intoxication, unspecified (principal)

== ENCOUNTER 2017-09-04 13:59 | Inpatient (IN) | payer OTHER ==
[2017-09-04 13:59] VITALS: BMI 30.2
[2017-09-04 15:38] LABS: BASO # 0.1 K/uL (0.0-0.2); BASO % 1.1 % (0.0-2.0); EOS # 0.1 K/uL (0.0-0.7); EOS % 1.6 % (0.0-4.0); HEMOGLOBIN 14.7 g/dL (12.0-18.0); LYMPH # 1.5 K/uL (1.0-4.3); LYMPH % 19.7 % (20.0-40.0); MEAN CELL VOLUME 98.7 fL (80.0-94.0); MEAN CORPUSCULAR HEMOGLOBIN 34.7 pg (27.0-31.0); MEAN CORPUSCULAR HGB CONC 35.2 g/dL (33.0-37.0); MONO # 0.7 K/uL (0.0-0.8); MONO % 9.2 % (0.0-10.0); NEUT # 5.1 K/uL (1.8-7.0); NEUT % 68.4 % (50.0-75.0); NRBC % 0.1 % (0.0-2.0); RBC 4.23 Mil/uL (4.40-5.90); RED CELL DISTRIBUTION WIDTH 13.6 % (11.5-14.5); WHITE BLOOD COUNT 7.4 K/uL (4.8-10.8)
[2017-09-04 15:43] LABS: URINE BILIRUBIN NEGATIVE (NEGATIVE); URINE BLOOD 2+ (NEGATIVE); URINE CLARITY Clear (Clear); URINE COLOR Straw (YELLOW); URINE GLUCOSE (UA) NORMAL (Normal); URINE LEUKOCYTE ESTERASE NEG Leu/uL (Negative); URINE PROTEIN NEGATIVE (NEGATIVE); URINE UROBILINOGEN NORMAL mg/dL (0.2-1.0)
[2017-09-04 15:55] LABS: ALB/GLOB RATIO 1.4 (1.0-2.1); ALBUMIN 4.7 g/dL (3.5-5.0); ALT/SGPT 58 U/L (21-72); AST/SGOT 119 U/L (17-59); BLOOD UREA NITROGEN 4 mg/dL (9-20); CALCIUM 8.8 mg/dl (8.6-10.4); GFR AFRICAN-AMERICAN > 60; GFR NON-AFRICAN AMERICAN > 60
[2017-09-04 15:57] LABS: BARBITURATES, UR NEGATIVE (NEGATIVE); BENZODIAZEPINES, UR NEGATIVE (NEGATIVE); OPIATES, UR NEGATIVE (NEGATIVE); PHENCYCLIDINE, UR NEGATIVE (NEGATIVE)
--- NOTE | 2017-09-04 16:20 | C.PDOC ---
History Of Present Illness 42 year old male patient presents to the ER with a request detox from alcohol. His last drink was 1 hour ago and denies of any nausea, vomiting, or diarrhea. Patient has no complaints. Time Seen by Provider: 09/04/17 15:08 Chief Complaint (Nursing): Substance Abuse History Per: Patient History/Exam Limitations: no limitations Onset/Duration Of Symptoms: Hrs Current Symptoms Are (Timing): Still Present Modifying Factor(s): Alcohol Past Medical History Vital Signs: Last Vital Signs Temp 99.4 F 09/04/17 18:29 Pulse 93 H 09/04/17 18:29 Resp 18 09/04/17 18:29 BP 117/75 09/04/17 18:29 Pulse Ox 100 09/04/17 19:24 - Medical History PMH: Depression, HTN - [facility] Procedures DETOXIFICATION SERVICES FOR SUBSTANCE ABUSE TREATMENT (02/28/17) GROUP GOLF CLUB MANAGER FOR SUBSTANCE ABUSE TREATMENT, PSYCHOEDUCATION (02/28/17) INDIV PSYCHOTHERAPY FOR SUBSTANCE ABUSE TREATMENT, SUPPORT (02/28/17) INDIVIDUAL PSYCHOTHERAPY, SUPPORTIVE (12/18/16) MEDICATION MANAGEMENT (02/28/17) Family History: States: Unknown Family Hx - Social History Hx Tobacco Use: Yes Hx Alcohol Use: Yes Hx Substance Use: No - Immunization History Hx Tetanus Toxoid Vaccination: No Hx Influenza Vaccination: No Hx Pneumococcal Vaccination: No Review Of Systems Except As Marked, All Systems Reviewed And Found Negative. Gastrointestinal: Negative for: Nausea, Vomiting, Diarrhea Physical Exam - Physical Exam Appears: Other (ETOH on breath) Skin: Normal Color, Warm, Dry Head: Atraumatic, Normacephalic Eye(s): bilateral: Normal Inspection Chest: Symmetrical, No Deformity Cardiovascular: Rhythm Regular Respiratory: Normal Breath Sounds, No Rales, No Rhonchi, No Wheezing Gastrointestinal/Abdominal: Soft, No Tenderness Back: No CVA Tenderness Extremity: Normal ROM (x4) Neurological/Psych: Oriented x3, Normal Speech Gait: Steady ED Course And Treatment - Laboratory Results Result Diagrams: 09/04/17 15:35 09/04/17 15:35 O2 Sat by Pulse Oximetry: 100 Medical Decision Making Medical Decision Making: Drug screen, blood work, urinalysis ordered. Patient cleared by fabric worker supervisor. Disposition Discussed With : Davidson Dorsey Doctor Will See Patient In The: Hospital Counseled Patient/Family Regarding: Studies Performed, Diagnosis - Disposition Disposition: HOSPITALIZED Disposition Time: 19:27 Condition: FAIR Forms: [employer] (Turkish) - Clinical Impression Clinical Impression: Alcohol abuse - Scribe Statement Cortez Do Provider Attestation: All medical record entries made by the Scribe were at my direction and personally dictated by me. I have reviewed the chart and agree that the record accurately reflects my personal performance of the history, physical exam, medical decision making, and the department course for this patient. I have also personally directed, reviewed, and agree with the discharge instructions and disposition.
--- NOTE | 2017-09-04 19:41 | PCM.BM ---
<Lynette Adkins - Last Filed: 09/04/17 19:39> Treatment Plan Problems - Problems identified on initial assessmt potiential for autonomic instability related to alcohol withdrawal Date Initiated: 09/04/17 Time Initiated: 19:40 Assessment reference: NA Status: Active Treatment assets and liabiliti Patient Assests: cooperative, insightful, ADL independent, physically healthy, cognitively intact Patient Liabilities: substance abuse - Milieu Protocol Maintain good personal hygiene: daily Encourage regular showers, daily Remind patient to perform daily oral care, daily Assist patient to perform ADL's Maintain personal safety: every shift Educate patient to report safety concerns to staff, every shift Monitor environment for contraband/sharps Medication safety: Monitor for expected outcome, potential side effects: every shift, Assess barriers to learning: every shift, Assess readiness for medication education: every shift <Davidson Dorsey - Last Filed: 09/06/17 14:56> - Diagnosis (1) Alcohol use disorder, severe, dependence Status: Acute Interventions: 09/06/17 14:54 * Assess 7x/week regarding severity of withdrawal * Educate regarding risks, benefits, side effects and alternatives of medications * Use Motivational Interviewing for abstinence * Use CBT for relapse prevention * Medication management for withdrawal symptoms * Encourage medication assisted treatment (2) Major depressive disorder, recurrent severe without psychotic features Status: Acute Interventions: 09/06/17 14:56 * Assess/adjust medications daily and /or as needed * See patient on an individual basis 7x/week to assess symptoms of depression * Monitor for side effects & effectiveness of medications
[2017-09-04] MEDS ORDERED: Albuterol HFA 90 mcg/actuation (8 g) INH PRN (22:00)
[2017-09-05] MEDS: Multiple Vitamins Tab PO SCH (09:47)
--- NOTE | 2017-09-05 10:00 | PCM.PSYCH ---
Initial Psychiatric Evaluation - Initial Psychiatric Evaluation Type of Admission: Voluntary Legal Status: Capacity Chief Complaint (in patient's own words): "I relapsed on alcohol" History of Present Illness and Precipitating Events: This is a 42-year-old male with a possible psychiatric history of depression and alcohol dependence admitted to the 7 detox unit for alcohol detox treatment. Patient's initial BAL was 250. Patient's last detox treatment was on 02/2017. Pt stated that he had relapse on etoh 3 weeks ago after he had breakup with his GF. CAGE questionnaire was positive. He reported that he was drinking hard liquor including beer on a daily basis. Patient currently reported tremors in the hand, nausea sweats. Currently patient denied any visual hallucinations, or auditory hallucinations. In the past he had auditory hallucinations secondary to alcohol withdrawal symptoms. Patient reported his depressive symptoms are stable. He would like to continue his home meds. He denied depressive disorder symptoms including depressed mood, with suicidal ideation, homicidal ideation, intent or plan. He reported that he is drinking alcohol to make himself calm down. Patient denied manic symptoms, PTSD symptoms, LUCAS. Current Medications: Active Medications Generic Name Dose Route Start Last Admin Trade Name Freq PRN Reason Stop Dose Admin Albuterol 1 puff 09/04/17 22:00 Ventolin Hfa 90 Mcg/Actuation (8 G) INH RQ6 PRN sibilant musical ronchi Clonidine HCl 0.1 mg 09/04/17 21:00 09/05/17 09:48 Catapres PO 0.1 mg Q4H PRN Administration Symptoms of alcohol withdrawl Folic Acid 1 mg 09/05/17 10:00 09/05/17 09:48 Folic Acid PO 1 mg DAILY SUKHI Administration Gabapentin 400 mg 09/05/17 10:00 09/05/17 09:48 Neurontin PO 400 mg TID SUKHI Administration Hydroxyzine HCl 25 mg 09/04/17 22:00 Atarax PO Q6 PRN Anxiety Ibuprofen 400 mg 09/04/17 21:00 Motrin Tab PO Q6 PRN Pain, moderate (4-7) Lorazepam 2 mg 09/04/17 21:00 09/05/17 08:33 Ativan PO 09/09/17 20:59 2 mg Q4 SUKHI Administration Taper Lorazepam 1 mg 09/04/17 22:00 Ativan PO Q4H PRN Symptoms of alcohol withdrawl Multivitamins 1 tab 09/05/17 10:00 09/05/17 09:47 Hexavitamin PO 1 tab DAILY SUKHI Administration Sertraline HCl 50 mg 09/05/17 10:00 09/05/17 09:48 Zoloft PO 50 mg DAILY SUKHI Administration Thiamine HCl 100 mg 09/05/17 10:00 09/05/17 09:48 Vitamin B1 Tab PO 100 mg DAILY SUKHI Administration Trazodone HCl 50 mg 09/04/17 22:00 09/04/17 21:19 Desyrel PO 50 mg HS PRN Administration Insomnia Past Psychiatric History - Past Psychiatric History Previous Treatment History: Inpatient At [facility]: [facility] Nature of Treatment: detox treatment and depression treatment with meds and therapy History of Abuse: denied History of ETOH/Drug Use: Please see HPI History of Family Illness: denied Pertinent Medical Hx (Current Medical&Sleep Prob, Allergies): Allergies Allergy/AdvReac Type Severity Reaction Status Date / Time No Known Allergies Allergy Verified 09/04/17 14:33 No Known Home Med 06/19/17 Review of Systems - Review of Systems All systems: reviewed and no additional remarkable complaints except (please see HPI) Mental Status Examination - Personal Presentation Personal Presentation: Looks stated age, Dressed appropriate to season - Affect Affect: Constricted, Depressed - Motor Activity Motor Activity: Calm, Psychomotor Retardation - Reliability in Providing Information Reliability in Providing Information: Fair - Speech Speech: Organized - Mood Mood: Depressed - Formal Thought Process Formal Thought Process: No Impairment - Hallucinations/Delusions Hallucinations: Other (denied) - Obsessions/Compulsions Obsessions: None Compulsions: None - Cognitive Functions Orientation: Person, Place, Situation, Time Sensorium: Alert Attention/Concentration: Easily distracted Abstract Thinking: [place] Estimate of Intelligence: Average Judgement: Intact, as evidence by: Good judgement, Intact, as evidence by: Insight regarding need for hospitalization Memory: Recent intact, as evidence by: Ability to recall events of the day - Risk Risk: Withdrawal, Falls - Strength & Assets Inventory Strength & Assets Inventory: Intelligence, Family support, Cooperative - Limitations Limitations: Other (chrnoic alcohol use disorder) DSM 5 DX - DSM 5 DSM 5 Diagnosis: Alcohol use disorder, severe, dependence Alcohol withdrawal Major depressive disorder, currently in remission - Recommended/Plan of Treatment Treatment Recommendations and Plan of Treatment: Ativan detox Continue Zoloft for depression Gabapentin for augmentation As needed meds and vitamins Attend groups and activities AR for abstinence and CBT for relapse prevention Support and psychoeducation Consider and encourage MAT Refer to after care 33 min Projected ELOS: 5-6 days Discharge Plan and Discharge Criteria: Time spend 30 minutes
[2017-09-06] MEDS: Multiple Vitamins Tab PO SCH (10:38)
--- NOTE | 2017-09-06 14:52 | PCM.PYCHPN ---
Psychiatric Progress Note - Psychiatric Progress Note Patient seen today, length of contact: 15 minutes Patient Chief Complaint: I'm feeling little better. Problems Identified/Issues Discussed: Patient seen, chart reviewed, case discussed with the staff. Issues related to illness and treatment were discussed with the patient and staff. Reported compliant with treatment with no adverse affects. Tolerating treatment very well. Risk and benefits of medications were discussed with the patient patient understood and agreed. Reported feeling little better. Calm and cooperative, speech soft with good eye contact. Awake alert oriented 3, denied any delusions, any auditory of visual hallucinations, no suicidal ideations or homicidal ideations at the time of evaluation. Aftercare discussed with the patient. Medical Problems: None reported Diagnostic Results: Reviewed DSM 5 Symptoms Update: Some improvement with treatment Medication Change: No Medical Record Reviewed: Yes Mental Status Examination - Cognitive Function Orientation: Person, Place, Situation, Time Memory: Intact Attention: WNL Concentration: WNL Association: [facility] Fund of Knowledge: [facility] Decription of patient's judgement and insights: Fair - Mood Mood: Depressed - Affect Affect: Depressed - Speech Speech: Appropriate - Formal Thought Process Formal Thought Process: No Impairment Psychotic Thoughts and Behaviors: None - Suicidal Ideation Suicidal Ideation: No - Homicidal Ideation Homicidal Ideation: No Goal/Treatment Plan - Goal/Treatment Plan Need for Continued Stay: Remain at risks for inpatient hospitalization, Discharge may exacerbated symptoms, Severe functional impairment Progress Toward Problem(s) and Goals/Treatment Plan: Some improvement with treatment. Patient education. Supportive therapy. CPT for relapse prevention. [place] for abstinence. Continue treatment as before. Estimated Date of D/C: 09/09/17 - Smoking Cessation Smoking Cessation Initiated: No
[2017-09-07] MEDS: Multiple Vitamins Tab PO SCH (09:47)
--- NOTE | 2017-09-07 19:51 | PCM.PYCHPN ---
Psychiatric Progress Note - Psychiatric Progress Note Patient seen today, length of contact: 15 minutes Patient Chief Complaint: I'm feeling better. I am sleeping less. Problems Identified/Issues Discussed: Patient seen, chart reviewed, case discussed with the staff. Issues related to illness and treatment were discussed with the patient and staff. Reported compliant with treatment with no adverse affects. Tolerating treatment very well. Risk and benefits of medications were discussed with the patient patient understood and agreed. Reported feeling better. Still complaining reported sleep. We'll increase the dose of trazodone to 100 mg from 50 mg. Calm and cooperative, speech soft with good eye contact. Awake alert oriented 3, denied any delusions, any auditory of visual hallucinations, no suicidal ideations or homicidal ideations at the time of evaluation. Aftercare discussed with the patient. Medical Problems: None reported Diagnostic Results: Reviewed DSM 5 Symptoms Update: Improving with treatment. Medication Change: No Medical Record Reviewed: Yes Mental Status Examination - Cognitive Function Orientation: Person, Place, Situation, Time Memory: Intact Attention: WNL Concentration: WNL Association: WNL Fund of Knowledge: WN Decription of patient's judgement and insights: Fair - Mood Mood: Depressed (Much less than before) - Affect Affect: Other (Appropriate) - Speech Speech: Appropriate - Formal Thought Process Formal Thought Process: No Impairment Psychotic Thoughts and Behaviors: None - Suicidal Ideation Suicidal Ideation: No - Homicidal Ideation Homicidal Ideation: No Goal/Treatment Plan - Goal/Treatment Plan Need for Continued Stay: Remain at risks for inpatient hospitalization, Discharge may exacerbated symptoms, Severe functional impairment Progress Toward Problem(s) and Goals/Treatment Plan: Some improvement with treatment. Patient education. Supportive therapy. CPT for relapse prevention. [place] for abstinence. Continue treatment as before. Estimated Date of D/C: 09/09/17 - Smoking Cessation Smoking Cessation Initiated: No
[2017-09-08] MEDS: Multiple Vitamins Tab PO SCH (09:51)
--- NOTE | 2017-09-08 14:39 | PCM.PYCHPN ---
Psychiatric Progress Note - Psychiatric Progress Note Patient seen today, length of contact: 15 minutes Patient Chief Complaint: I'm feeling better. Problems Identified/Issues Discussed: Patient seen, chart reviewed, case discussed with the staff. Issues related to illness and treatment were discussed with the patient and staff. Reported compliant with treatment with no adverse affects. Tolerating treatment very well. Risk and benefits of medications were discussed with the patient patient understood and agreed. Reported feeling much better. Calm and cooperative, speech soft with good eye contact. Awake alert oriented 3, denied any delusions, any auditory of visual hallucinations, no suicidal ideations or homicidal ideations at the time of evaluation. Aftercare discussed with the patient. Medical Problems: None reported Diagnostic Results: Reviewed DSM 5 Symptoms Update: Improving with treatment Medication Change: No Medical Record Reviewed: Yes Mental Status Examination - Cognitive Function Orientation: Person, Place, Situation, Time Memory: Intact Attention: WNL Concentration: WNL Association: WN Fund of Knowledge: [facility] Decription of patient's judgement and insights: Fair - Mood Mood: Neutral - Affect Affect: Other (Appropriate) - Speech Speech: Appropriate - Formal Thought Process Formal Thought Process: No Impairment Psychotic Thoughts and Behaviors: None - Suicidal Ideation Suicidal Ideation: No - Homicidal Ideation Homicidal Ideation: No Goal/Treatment Plan - Goal/Treatment Plan Need for Continued Stay: Remain at risks for inpatient hospitalization, Discharge may exacerbated symptoms, Severe functional impairment Progress Toward Problem(s) and Goals/Treatment Plan: Some improvement with treatment. Patient education. Supportive therapy. CPT for relapse prevention. [place] for abstinence. Continue treatment as before. Estimated Date of D/C: 09/09/17 - Smoking Cessation Smoking Cessation Initiated: No
[2017-09-08 15:40] VITALS: RESP 18
[2017-09-09] MEDS: Multiple Vitamins Tab PO SCH (09:20)
[2017-09-09 12:36] VITALS: BP 124/82; PULSE 83; TEMP 98.3; O2SAT 97
--- NOTE | 2017-09-09 19:08 | PCM.PYCHDC ---
Mental Status Examination - Mental Status Examination Orientation: Person, Place, Situation, Time Memory: Intact Mood: Neutral Affect: Other (Appropriate) Speech: Appropriate Attention: WNL Concentration: WNL Association: WNL Fund of Knowledge: WNL Formal Thought Process: No Impairment Description of patient's judgement and insight: Fair Psychotic Thoughts and Behaviors: None Suicidal Ideation: No Current Homicidal Ideation?: No Discharge Summary - Discharge Note Reason for Hospitalization: Alcohol use disorder severe Major depressive disorder Psychiatric History (includes Medical, Family, Personal Hx): detox treatment and depression treatment with meds and therapy Laboratory Data: Reviewed Consultations:: List each consultation separately and include: 1. Reason for request. 2. Findings. 3. Follow-up Summary of Hospital Course include:: 1. Description of specific treatment plan utilized for patients during their course of treatmen. 2. Summarize the time- course for resolution of acute symptoms and/or regressed behaviors. 3. Describe issues identified and worked on during hospitalization. 4. Describe medication utilized. 5. Describe medical problems identified and treated. 6. Reassessment of suicide risk Summary of Hospital Course: This is a 42-year-old male with a possible psychiatric history of depression and alcohol dependence admitted to the detox unit for alcohol detox treatment. Patient's initial BAL was 250. Patient's last detox treatment was on 02/2017. Pt stated that he had relapse on etoh 3 weeks ago after he had breakup with his GF. CAGE questionnaire was positive. He reported that he was drinking hard liquor including beer on a daily basis. Patient currently reported tremors in the hand, nausea sweats. Currently patient denied any visual hallucinations, or auditory hallucinations. In the past he had auditory hallucinations secondary to alcohol withdrawal symptoms. Patient reported his depressive symptoms are stable. He would like to continue his home meds. He denied depressive disorder symptoms including depressed mood, with suicidal ideation, homicidal ideation, intent or plan. He reported that he is drinking alcohol to make himself calm down. Patient denied manic symptoms, PTSD symptoms, LUCAS. During his stay in the hospital patient was treated with Ativan taper for alcohol withdrawal symptoms due to elevated AST. Patient was also started on other when necessary medications. With the above treatment patient started feeling better. Today patient was stable, had no withdrawal symptoms and was ready for discharge from the hospital. At the time of evaluation and discharge, patient was awake alert oriented 3, had no delusions, no auditory or visual hallucinations, no suicidal ideations or homicidal ideations. Patient was discharged in a stable condition. Patient will attend AA meetings. - Diagnosis (1) Alcohol use disorder, severe, dependence Status: Acute (2) Major depressive disorder, recurrent severe without psychotic features Status: Acute - Final Diagnosis (DSM 5) Condition upon Discharge: FAIR Disposition: HOSPICE - HOME Follow-up Treatment Plan: Patient will attend AA meetings. Prescriptions/Medication Reconciliation: Gabapentin [Neurontin] 400 mg PO TID #90 cap Sertraline [Zoloft] 50 mg PO DAILY #30 tab traZODone [Desyrel] 100 mg PO HS PRN #30 tab PRN Reason: Insomnia - Smoking Cessation Smoking Cessation Medication prescribed: No - Antipsychotic Medications Pt discharged on 2 or more routine antipsychotic medications: No
== END 2017-09-09 13:21 | disposition home or self-care (01) | DRG 750 ==
LOC: C.ER 13:59 → C.7D 19:33
PROC: HZ2ZZZZ Detoxification Services for Substance Abuse Treatment (ICD-10-PCS; principal; 2017-09-04)
PROC: HZ52ZZZ Individual Psychotherapy for Substance Abuse Treatment, Cognitive-Behavioral (ICD-10-PCS; 2017-09-04)
PROC: HZ59ZZZ Individual Psychotherapy for Substance Abuse Treatment, Supportive (ICD-10-PCS; 2017-09-04)
PROC: HZ56ZZZ Individual Psychotherapy for Substance Abuse Treatment, Psychoeducation (ICD-10-PCS; 2017-09-04)
PROC: HZ42ZZZ Group Counseling for Substance Abuse Treatment, Cognitive-Behavioral (ICD-10-PCS; 2017-09-04)
PROC: HZ46ZZZ Group Counseling for Substance Abuse Treatment, Psychoeducation (ICD-10-PCS; 2017-09-04)
PROC: GZHZZZZ Group Psychotherapy (ICD-10-PCS; 2017-09-04)
PROC: GZ58ZZZ Individual Psychotherapy, Cognitive-Behavioral (ICD-10-PCS; 2017-09-04)
PROC: GZ56ZZZ Individual Psychotherapy, Supportive (ICD-10-PCS; 2017-09-04)
DX: F10.230 Alcohol dependence with withdrawal, uncomplicated (principal); F33.2 Major depressive disorder, recurrent severe without psychotic features; Y90.8 Blood alcohol level of 240 mg/100 ml or more; I10 Essential (primary) hypertension; Z87.891 Personal history of nicotine dependence

== ENCOUNTER 2018-07-25 11:46 | Inpatient (IN) | payer OTHER ==
[2018-07-25 11:46] VITALS: BMI 27.4
[2018-07-25 13:08] LABS: BASO # 0.1 K/uL (0.0-0.2); EOS # 0.2 K/uL (0.0-0.7); EOS % 4.4 % (0.0-4.0); HEMOGLOBIN 18.5 g/dL (12.0-18.0); LYMPH # 1.9 K/uL (1.0-4.3); LYMPH % 34.1 % (20.0-40.0); MEAN CORPUSCULAR HEMOGLOBIN 35.6 pg (27.0-31.0); MEAN CORPUSCULAR HGB CONC 35.1 g/dL (33.0-37.0); MEAN PLATELET VOLUME 7.1 fL (7.2-11.7); MONO # 0.5 K/uL (0.0-0.8); NEUT # 2.8 K/uL (1.8-7.0); NEUT % 50.5 % (50.0-75.0); RBC 5.19 Mil/uL (4.40-5.90); RED CELL DISTRIBUTION WIDTH 12.5 % (11.5-14.5); WHITE BLOOD COUNT 5.5 K/uL (4.8-10.8)
[2018-07-25 13:10] LABS: MEAN CELL VOLUME 101.3 fL (80.0-94.0)
[2018-07-25 13:11] LABS: URINE BILIRUBIN NEGATIVE (NEGATIVE); URINE BLOOD 1+ (NEGATIVE); URINE CLARITY Clear (Clear); URINE COLOR Yellow (YELLOW); URINE GLUCOSE (UA) 1+ mg/dL (Normal); URINE LEUKOCYTE ESTERASE NEG Leu/uL (Negative); URINE PROTEIN NEGATIVE (NEGATIVE); URINE UROBILINOGEN NORMAL mg/dL (0.2-1.0)
[2018-07-25 13:18] LABS: ALB/GLOB RATIO 1.4 (1.0-2.1); ALBUMIN 5.2 g/dL (3.5-5.0); ALT/SGPT 136 U/L (21-72); AST/SGOT 147 U/L (17-59); BLOOD UREA NITROGEN 8 mg/dL (9-20); CALCIUM 9.4 mg/dl (8.6-10.4); GFR NON-AFRICAN AMERICAN > 60; LIPASE 70 U/L (23-300)
[2018-07-25 13:31] LABS: BARBITURATES, UR NEGATIVE (NEGATIVE); BENZODIAZEPINES, UR NEGATIVE (NEGATIVE); OPIATES, UR NEGATIVE (NEGATIVE); PHENCYCLIDINE, UR NEGATIVE (NEGATIVE)
--- NOTE | 2018-07-25 13:35 | C.PDOC ---
History Of Present Illness 42-year-old male presents to the emergency department requesting detox from alcohol. Patient states that he was drinking on the bus ride here. Patient reports drinking 12 bottles of beer and alternating that with 3 to 4 shots. Patient states that he has been drinking at this rate since March 2018. Patient states that his history of alcohol abuse started at the age of 14. Patient reports an isolated incident of cocaine use last week. 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 Patient lives with his girlfriend but she is sick and tired of him. Patient reports that his kids want nothing to do with him and that they are his motivation to get clean. Patient denies psychiatric history and abdominal discomfort. Time Seen by Provider: 07/25/18 12:15 Chief Complaint (Nursing): Substance Abuse History Per: Patient History/Exam Limitations: no limitations Onset/Duration Of Symptoms: Hrs Current Symptoms Are (Timing): Still Present Suicide/Self Injury Attempted (Context): None Modifying Factor(s): Alcohol Associated Symptoms: denies: Depression, Suicidal Thoughts, Suicidal Plan Past Medical History Reviewed: Historical Data, Nursing Documentation, Vital Signs Vital Signs: Last Vital Signs Temp 99.1 F 07/25/18 11:49 Pulse 89 07/25/18 11:49 Resp 17 07/25/18 11:49 BP 170/117 H 07/25/18 11:49 Pulse Ox 95 07/25/18 11:49 Primary Care Provider: FAMILY PROVIDER,NO - Medical History PMH: Depression, Diverticulitis, HTN Denies: Diabetes, Hepatitis, HIV, Chronic Kidney Disease, Seizures, Sexually Transmitted Disease Surgical History: No Surg Hx - [facility] Procedures DETOXIFICATION SERVICES FOR SUBSTANCE ABUSE TREATMENT (09/04/17) GROUP CABLE PLACER FOR SUBSTANCE ABUSE TREATMENT, PSYCHOEDUCATION (09/04/17) GROUP CABLE PLACER FOR SUBSTANCE ABUSE, COGNITIVE BEHAVIORAL (09/04/17) GROUP PSYCHOTHERAPY (11/21/17) INDIV PSYCHOTHERAPY FOR SUBSTANCE ABUSE TREATMENT, SUPPORT (09/04/17) INDIV PSYCHOTHERAPY FOR SUBSTANCE ABUSE, COGNITIV BEHAVIORAL (09/04/17) INDIV PSYCHOTHERAPY FOR SUBSTANCE ABUSE, PSYCHOEDUCATION (09/04/17) INDIVIDUAL PSYCHOTHERAPY, COGNITIVE-BEHAVIORAL (09/04/17) INDIVIDUAL PSYCHOTHERAPY, SUPPORTIVE (11/21/17) MEDICATION MANAGEMENT (02/28/17) Family History: States: No Known Family Hx - Social History Hx Tobacco Use: Yes Hx Alcohol Use: Yes Hx Substance Use: Yes - Immunization History Hx Tetanus Toxoid Vaccination: No Hx Influenza Vaccination: No Hx Pneumococcal Vaccination: No Review Of Systems Except As Marked, All Systems Reviewed And Found Negative. Constitutional: Negative for: Fever, Chills Cardiovascular: Negative for: Chest Pain Respiratory: Negative for: Cough, Shortness of Breath Gastrointestinal: Negative for: Nausea, Vomiting, Abdominal Pain, Diarrhea Musculoskeletal: Negative for: Neck Pain Neurological: Negative for: Weakness, Numbness Physical Exam - Physical Exam Appears: Non-toxic, No Acute Distress Skin: Normal Color, Warm, Dry Head: Atraumatic, Normacephalic Eye(s): bilateral: Normal Inspection, PERRL, EOMI Nose: Normal Oral Mucosa: Moist, Other (alcohol on breath) Neck: Normal, Supple Chest: Symmetrical, No Tenderness Cardiovascular: Rhythm Regular, No Murmur Respiratory: No Rales, No Rhonchi, No Wheezing Gastrointestinal/Abdominal: Soft, Tenderness (mild epigastric tenderness), No Guarding, No Rebound Extremity: Normal ROM Neurological/Psych: Oriented x3, Normal Speech, Normal Cognition ED Course And Treatment - Laboratory Results Result Diagrams: 07/25/18 12:58 07/25/18 12:58 Lab Results: Total Bilirubin 1.0 mg/dL (0.2-1.3) 07/25/18 12:58 AST 147 U/L (17-59) H D 07/25/18 12:58 ALT 136 U/L (21-72) H D 07/25/18 12:58 Alkaline Phosphatase 112 U/L (38-126) 07/25/18 12:58 Total Protein 8.8 g/dL (6.3-8.3) H 07/25/18 12:58 Albumin 5.2 g/dL (3.5-5.0) H 07/25/18 12:58 Globulin 3.6 gm/dL (2.2-3.9) 07/25/18 12:58 Albumin/Globulin Ratio 1.4 (1.0-2.1) 07/25/18 12:58 Lipase 70 U/L (23-300) 07/25/18 12:58 Urine Color Yellow (YELLOW) 07/25/18 12:58 Urine Clarity Clear (Clear) 07/25/18 12:58 Urine pH 7.0 (5.0-8.0) 07/25/18 12:58 Ur Specific [place] 1.006 (1.003-1.030) 07/25/18 12:58 Urine Protein Negative mg/dL (NEGATIVE) 07/25/18 12:58 Urine Glucose (UA) 1+ mg/dL (Normal) H 07/25/18 12:58 Urine Ketones Negative mg/dL (NEGATIVE) 07/25/18 12:58 Urine Blood 1+ (NEGATIVE) H 07/25/18 12:58 Urine Nitrate Negative (NEGATIVE) 07/25/18 12:58 Urine Bilirubin Negative (NEGATIVE) 07/25/18 12:58 Urine Urobilinogen Normal mg/dL (0.2-1.0) 07/25/18 12:58 Ur Leukocyte Esterase Neg Kristal/uL (Negative) 07/25/18 12:58 Urine RBC (Auto) 4 /hpf (0-3) H 07/25/18 12:58 O2 Sat by Pulse Oximetry: 95 (RA) Pulse Ox Interpretation: Normal Medical Decision Making Medical Decision Making: Plan: Chemistry CBC Urinalysis Patient has been accepted for detox by Dr. Israel Alcohol was confiscated from the patient at bedside. Disposition - Disposition Disposition: HOSPITALIZED Disposition Time: 14:30 Condition: STABLE - Clinical Impression Clinical Impression: Alcohol abuse, Alcohol intoxication, Transaminitis - Scribe Statement The provider has reviewed the documentation as recorded by the Scribe (Suresh Jauregui) Provider Attestation: All medical record entries made by the Scribe were at my direction and personally dictated by me. I have reviewed the chart and agree that the record accurately reflects my personal performance of the history, physical exam, medical decision making, and the department course for this patient. I have also personally directed, reviewed, and agree with the discharge instructions and disposition.
[2018-07-25] MEDS ORDERED: Aluminum Hydroxide/Magnesium Hydroxide Susp (30 mL) PO STA (14:29)
[2018-07-25] MEDS ORDERED: Aluminum Hydroxide/Magnesium Hydroxide Susp (30 mL) ONE (14:38)
[2018-07-25] MEDS: Multiple Vitamins Tab PO SCH (16:44)
--- NOTE | 2018-07-25 20:10 | PCM.BM ---
<Valeri Zhu - Last Filed: 07/25/18 20:08> Treatment Plan Problems - Problems identified on initial assessmt Anxiety Related to Substance Use Date Initiated: 07/25/18 Time Initiated: 20:08 Assessment reference: NA Status: Active Defensive Coping Date Initiated: 07/25/18 Time Initiated: 20:09 Assessment reference: NA Status: Active Knowledge Deficit: Alcohol Use Date Initiated: 07/25/18 Time Initiated: 20:09 Assessment reference: NA Status: Active Treatment assets and liabiliti Patient Assests: cooperative, ADL independent, cognitively intact Patient Liabilities: substance abuse - Milieu Protocol Maintain good personal hygiene: daily Encourage regular showers, daily Remind patient to perform daily oral care, daily Assist patient to perform ADL's Conduct patient checks and document Observation sheet: Q15 minutes Maintain personal safety: every shift Educate patient to report safety concerns to staff, every shift Monitor environment for contraband/sharps Medication safety: Monitor for expected outcome, potential side effects: every shift, Assess barriers to learning: every shift, Assess readiness for medication education: every shift <Carmen Israel - Last Filed: 07/30/18 08:51> - Diagnosis (1) Alcohol use disorder, severe, dependence Status: Acute Interventions: 07/26/18 08:51 * Assess 7x/week regarding severity of withdrawal * Educate regarding risks, benefits, side effects and alternatives of medications * Use Motivational Interviewing for abstinence * Use CBT for relapse prevention * Medication management for withdrawal symptoms * Encourage medication assisted treatment *
--- NOTE | 2018-07-26 08:46 | PCM.PSYCH ---
Initial Psychiatric Evaluation - Initial Psychiatric Evaluation Type of Admission: Voluntary Legal Status: Capacity Chief Complaint (in patient's own words): "Alcohol" History of Present Illness and Precipitating Events: He is seen, chart reviewed and case discussed. He is known from previous admissions. The patient is a 42-year-old male with alcohol dependence admitted to the [facility] unit for alcohol detox treatment. Patient was discharged from the [facility] detox unit in November 2017 and since 02/2016 he has had about 7-8 admissions for detox (one psych but alcohol was involved). 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 He is single with 4 children. He reported that he was drinking hard liquor but lately more beer , 3 of 6 packs. Patient currently reported abdominal pain, tremors in the hand, nausea, sweats. Currently patient denied any visual hallucinations, or auditory hallucinations. In the past he had auditory hallucinations AND DTs secondary to alcohol withdrawal symptoms. He denies cigarette use. He admits to sniffing cocaine 20 years ago and sniffed 1 small pack once last week. He denies to smoking marijuana, heroin, PCP and LSD. Patient reported major depressive symptoms are depressive disorder symptoms including depressed mood, with on-and-off suicidal ideation but no intent or plan for the last few days. Patient stated that he never attempted suicide because he have for children's and he does not want to hurt his family. Patient denied manic symptoms, PTSD symptoms. Patient denied any past suicide attempt. He has GI problems - untreated Psych Hx: Anxiety Past Psych Hospitalization: Denies Fam Psych Hx: Denies Current Medications: Active Medications Generic Name Dose Route Start Last Admin Trade Name Laure PRN Reason Stop Dose Admin Clonidine HCl 0.1 mg 07/25/18 16:00 07/25/18 21:04 Catapres PO 0.1 mg Q4H PRN Administration Symptoms of alcohol withdrawl Folic Acid 1 mg 07/25/18 16:00 07/25/18 16:44 Folic Acid PO 1 mg DAILY SUKHI Administration Lorazepam 1 mg 07/25/18 16:02 Ativan PO Q4H PRN Symptoms of alcohol withdrawl Lorazepam 2 mg 07/25/18 18:00 07/26/18 05:53 Ativan PO 07/30/18 17:59 2 mg Q6H SUKHI Administration Taper Multivitamins 1 tab 07/25/18 16:15 07/25/18 16:44 Hexavitamin PO 1 tab DAILY SUKHI Administration Thiamine HCl 100 mg 07/25/18 16:00 07/25/18 16:44 Vitamin B1 Tab PO 100 mg DAILY SUKHI Administration Trazodone HCl 50 mg 07/25/18 16:00 07/25/18 21:03 Desyrel PO 50 mg HS PRN Administration Insomnia Past Psychiatric History - Past Psychiatric History Previous Treatment History: Intensive Outpatient Pertinent Medical Hx (Current Medical&Sleep Prob, Allergies): Allergies Allergy/AdvReac Type Severity Reaction Status Date / Time No Known Allergies Allergy Verified 07/25/18 11:52 Pantoprazole [Protonix EC Tab] 20 mg PO DAILY #30 ect 11/26/17 hydrOXYzine HCl [Atarax] 50 mg PO DAILY PRN #30 tab 11/26/17 Review of Systems - Psychiatric Psychiatric: Abnormal Sleep Pattern, Anhedonia, Anxiety, Behavioral Changes, Change in Appetite, Depression, Difficulty Concentrating. absent: Hallucinations, Homicidal Ideation, Hopelessness, Suicidal Ideation Mental Status Examination - Personal Presentation Personal Presentation: Looks older than stated age - Affect Affect: Constricted - Motor Activity Motor Activity: Calm - Reliability in Providing Information Reliability in Providing Information: Good - Speech Speech: Organized - Mood Mood: Depressed, Anxious - Formal Thought Process Formal Thought Process: No Impairment - Cognitive Functions Orientation: Person, Place, Situation, Time Sensorium: Alert Attention/Concentration: Easily distracted Abstract Thinking: [place] Estimate of Intelligence: Below average Judgement: Intact, as evidence by: Insight regarding need for hospitalization Memory: Recent intact, as evidence by: Ability to recall events of the day, Remote intact, as evidenced by: Abilit to recall sig. life events - Risk Risk: Withdrawal, Diminished functioning - Strength & Assets Inventory Strength & Assets Inventory: Cooperative - Limitations Limitations: Other DSM 5 DX - DSM 5 DSM 5 Diagnosis: Alcohol withdrawal Alcohol use d/o - severe Depressive d/o - unspecified - Recommended/Plan of Treatment Treatment Recommendations and Plan of Treatment: Taper with ativan (liver is impaired now) Lexapro for depression Naltrexone when LFTs decrease Gabapentin for augmentation if needed As needed medications All risks, benefits and alternatives of the meds discussed, and the pt agreed and understood. Attend groups and activities Supportive therapy and psychoeducation [place] for abstinence CBT for relapse prevention Encourage MAT Refer to rehab or IOP, and self-help groups Smoking cessation with [place] Nicotine patch if needed 34 min Projected ELOS: 4 days
[2018-07-26] MEDS: Multiple Vitamins Tab PO SCH (09:40)
[2018-07-27] MEDS: Multiple Vitamins Tab PO SCH (09:07)
--- NOTE | 2018-07-27 19:46 | PCM.PYCHPN ---
Psychiatric Progress Note - Psychiatric Progress Note Patient seen today, length of contact: 17 Mins Problems Identified/Issues Discussed: Patient was seen and chart was reviewed. Case was discussed with treatment team. Issues related to the illness and treatments were discussed with the patient, and issues related to illness and treatments were discussed with the patient and staff. Patient reported compliance with treatment and no adverse effects from the medications were reported. Patient is tolerating treatment well at this time. Patient denies any withdrawal symptoms such as body aches, sweating, nausea, decreased sleep or headaches at this time. Patient reports mood as improved, affect is congruent with mood. Aftercare was discussed with patient and he verbalized understanding. Patient denies any delusions, auditory/visual hallucinations, or perceptual disturbances. Patient also denies any suicidal or homicidal ideation/plan/intent at this time. Medication Change: Yes (Detox changes daily) Medical Record Reviewed: Yes Mental Status Examination - Cognitive Function Orientation: Person, Place, Situation, Time Attention: WNL Concentration: WNL - Mood Mood: Depressed, Anxious - Affect Affect: Constricted - Speech Speech: Appropriate - Formal Thought Process Formal Thought Process: No Impairment - Suicidal Ideation Suicidal Ideation: No - Homicidal Ideation Homicidal Ideation: No Goal/Treatment Plan - Goal/Treatment Plan Progress Toward Problem(s) and Goals/Treatment Plan: Continue medications Support and psychoeducation daily Attend groups and activities daily Individual therapy After care planning by BAY and the team - Smoking Cessation Smoking Cessation Initiated: No
[2018-07-28] MEDS: Multiple Vitamins Tab PO SCH (09:19)
[2018-07-29] MEDS: Multiple Vitamins Tab PO SCH (09:12)
--- NOTE | 2018-07-29 22:33 | PCM.PYCHPN ---
Psychiatric Progress Note - Psychiatric Progress Note Patient seen today, length of contact: 17 Mins Patient Chief Complaint: "I have less withdrawal symptoms" Problems Identified/Issues Discussed: Patient was seen and chart was reviewed. Case was discussed with treatment team. Issues related to the illness and treatments were discussed with the patient, and issues related to illness and treatments were discussed with the patient and staff. Patient reported compliance with treatment and no adverse effects from the medications were reported. Patient is tolerating treatment well at this time. Patient denies any withdrawal symptoms such as body aches, sweating, n ausea, decreased sleep or headaches at this time. Patient reports mood as improved, affect is congruent with mood. Aftercare was discussed with patient and he verbalized understanding. Patient denies any delusions, auditory/visual hallucinations, or perceptual disturbances. Patient also denies any suicidal or homicidal ideation/plan/intent at this time. Medication Change: Yes (Detox changes daily) Medical Record Reviewed: Yes Mental Status Examination - Cognitive Function Orientation: Person, Place, Situation, Time Attention: WNL Concentration: WNL - Mood Mood: Depressed, Anxious - Affect Affect: Constricted - Speech Speech: Appropriate - Formal Thought Process Formal Thought Process: No Impairment - Suicidal Ideation Suicidal Ideation: No - Homicidal Ideation Homicidal Ideation: No Goal/Treatment Plan - Goal/Treatment Plan Progress Toward Problem(s) and Goals/Treatment Plan: Continue medications Support and psychoeducation daily Attend groups and activities daily Individual therapy After care planning by BAY and the team
[2018-07-30 06:00] VITALS: TEMP 97.9; O2SAT 97
--- NOTE | 2018-07-30 08:35 | PCM.PYCHDC ---
Mental Status Examination - Mental Status Examination Orientation: Person Discharge Summary - Discharge Note Consultations:: List each consultation separately and include: 1. Reason for request. 2. Findings. 3. Follow-up Summary of Hospital Course include:: 1. Description of specific treatment plan utilized for patients during their course of treatmen. 2. Summarize the time- course for resolution of acute symptoms and/or regressed behaviors. 3. Describe issues identified and worked on during hospitalization. 4. Describe medication utilized. 5. Describe medical problems identified and treated. 6. Reassessment of suicide risk Summary of Hospital Course: He is seen, chart reviewed and case discussed. He is known from previous admissions. The patient is a 42-year-old male with alcohol dependence admitted to the detox unit for alcohol detox treatment. Patient was discharged from the [facility] detox unit in November 2017 and since 02/2016 he has had about 7-8 admissions for detox (one psych but alcohol was involved). 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 He is single with 4 children. He reported that he was drinking hard liquor but lately more beer , 3 of 6 packs. Patient currently reported abdominal pain, tremors in the hand, nausea, sweats. Currently patient denied any visual hallucinations, or auditory hallu cinations. In the past he had auditory hallucinations AND DTs secondary to alcohol withdrawal symptoms. He denies cigarette use. He admits to sniffing cocaine 20 years ago and sniffed 1 small pack once last week. He denies to smoking marijuana, heroin, PCP and LSD. Patient reported major depressive symptoms are depressive disorder symptoms including depressed mood, with on-and-off suicidal ideation but no intent or plan for the last few days. Patient stated that he never attempted suicide because he have for children's and he does not want to hurt his family. Patient denied manic symptoms, PTSD symptoms. Patient denied any past suicide attempt. He has GI problems - untreated Psych Hx: Anxiety Past Psych Hospitalization: Denies Fam Psych Hx: Denies He was again unmotivated for aftercare. He only agreed to do AA and he claimed he has to work "a lot" although he may have lost his job bc of drinking and calling out sick. - Final Diagnosis (DSM 5) Condition upon Discharge: STABLE Disposition: HOME/ ROUTINE Follow-up Treatment Plan: Taper with ativan (liver is impaired now) Lexapro for depression Naltrexone when LFTs decrease Gabapentin for augmentation if needed As needed medications All risks, benefits and alternatives of the meds discussed, and the pt agreed and understood. Attend groups and activities Supportive therapy and psychoeducation [place] for abstinence CBT for relapse prevention Encourage MAT Refer to rehab or IOP, and self-help groups Smoking cessation with [place] Nicotine patch if needed 34 min
[2018-07-30 09:08] VITALS: BP 145/88; PULSE 86; RESP 18
[2018-07-30] MEDS: Multiple Vitamins Tab PO SCH (09:39)
== END 2018-07-30 09:45 | disposition home or self-care (01) | DRG 772 ==
LOC: C.ER 11:46 → C.7D 14:30 → OBSVTOIN 19:41
PROVIDERS: ADMIT Psychiatry & Neurology Psychiatry; ATTEND Psychiatry & Neurology Psychiatry
PROC: HZ2ZZZZ Detoxification Services for Substance Abuse Treatment (ICD-10-PCS; principal; 2018-07-25)
PROC: HZ46ZZZ Group Counseling for Substance Abuse Treatment, Psychoeducation (ICD-10-PCS; 2018-07-25)
PROC: GZ3ZZZZ Medication Management (ICD-10-PCS; 2018-07-25)
PROC: HZ59ZZZ Individual Psychotherapy for Substance Abuse Treatment, Supportive (ICD-10-PCS; 2018-07-25)
DX: F10.231 Alcohol dependence with withdrawal delirium (principal); F14.90 Cocaine use, unspecified, uncomplicated; F32.9 Major depressive disorder, single episode, unspecified; I10 Essential (primary) hypertension; Z87.891 Personal history of nicotine dependence